=== PATIENT | male | born 1975 | race Caucasian/White ===

== ENCOUNTER 2018-07-10 23:09 | Emergency (ER) | payer MEDICAID ==
[~2018-07-10] VITALS: Ht 188 cm; Wt 144.0 kg
--- NOTE | 2018-07-10 23:48 | NUR ---
Patient is A&O x4, THURSTON and is appropriate. He reports BLE swelling, pain and reddness with a history of DVT in the left leg. I will continue to monitor.
--- NOTE | 2018-07-11 00:28 | NUR ---
Patient to CT w/o problem
--- NOTE | 2018-07-11 01:44 | NUR ---
Patient sleeping on gurney, waiting to be seen by MD.
--- NOTE | 2018-07-11 02:32 | NUR ---
Patient sitting on side of MD nani ordered labs,EKG and radiology. I will continue to monitor.
--- NOTE | 2018-07-11 03:22 | NUR ---
Patient back from xray, resting comfortably on gurney
[2018-07-11 03:40] LABS: BASOPHILS % (AUTO) 0.7 % (0-1); EOSINOPHILS # (AUTO) 0.4 X10'3 (0-0.9); EOSINOPHILS % (AUTO) 5.9 % (0-6); HEMATOCRIT 37.5 % (42.0-52.0); HEMOGLOBIN 12.4 g/dl (14.0-17.9); LYMPHOCYTES # (AUTO) 1.6 X10'3 (1.1-4.8); LYMPHOCYTES % (AUTO) 24.9 % (21-51); MEAN CORPUSCULAR HEMOGLOBIN 29.3 PG (27.0-31.0); MEAN CORPUSCULAR HGB CONC 33.2 % (33.0-36.5); MEAN CORPUSCULAR VOLUME 88.2 FL (78-98); MEAN PLATELET VOLUME 6.6 FL (7.4-10.4); MONOCYTES # (AUTO) 0.9 X10'3 (0-0.9); MONOCYTES % (AUTO) 13.5 % (2-12); NEUTROPHILS # (AUTO) 3.5 X10'3 (1.8-7.7); PLATELET COUNT 271 X10'3 (140-440); RED BLOOD COUNT 4.25 X10'6 (4.70-6.10); RED CELL DISTRIBUTION WIDTH 13.9 % (11.5-14.5); WHITE BLOOD COUNT 6.3 X10'3 (4.5-11.0)
[2018-07-11 03:41] LABS: CLARITY,URINE CLEAR (Clear); COLOR,URINE YELLOW (Yellow); GLUCOSE, URINE NEGATIVE (Neg); KETONES,URINE NEGATIVE (Neg); LEUKOCYTE ESTERASE ,URINE NEGATIVE (Neg); NITRITES, URINE NEGATIVE (Neg); OCCULT BLOOD,URINE NEGATIVE (Neg); PH,URINE 5.5 (4.8-8.0); PROTEIN,URINE NEGATIVE (Neg); UROBILINOGEN,URINE 0.2 E.U/dL (0.2-1.0)
[2018-07-11 03:47] LABS: ALANINE AMINOTRANSFERASE 69 U/L (12-78); ALBUMIN 3.6 G/DL (3.4-5.0); ALBUMIN/GLOBULIN RATIO 0.9 (1.1-1.5); ALKALINE PHOSPHATASE 190 IU/L (46-116); ANION GAP 13 (8-16); ASPARTATE AMINO TRANSFERASE 49 U/L (10-37); BILIRUBIN,TOTAL 0.9 MG/DL (0.1-1.0); BLOOD UREA NITROGEN 20 MG/DL (7-18); BUN/CREATININE RATIO 20.6 (5.4-32.0); CALCIUM 8.9 MG/DL (8.5-10.1); CHLORIDE 104 MMOL/L (99-107); CREATININE 0.97 MG/DL (0.60-1.10); GLUCOSE 75 MG/DL (70-104); POTASSIUM 3.6 MMOL/L (3.5-5.1); SODIUM 141 MMOL/L (135-145); TOTAL CARBON DIOXIDE 24.5 MMOL/L (24-32); TOTAL PROTEIN 7.6 G/DL (6.4-8.2); eGFR 85 ML/MIN
[2018-07-11 03:49] LABS: PARTIAL THROMBOPLASTIN TIME 27 SECONDS (22-32); PROTHROMBIN TIME 9.8 SECONDS (9.0-12.0)
[2018-07-11 03:55] LABS: MAGNESIUM 2.2 MG/DL (1.5-2.4)
[2018-07-11 04:14] VITALS: BP 123/86
[2018-07-11 04:30] LABS: UA COLLECTION TYPE CLN CATCH MIDSTREAM
[2018-07-11] MEDS ORDERED: CEPH250T PO (04:59)
[2018-07-11] MEDS ORDERED: FURO-150 PO (04:59)
[2018-07-11] MEDS ORDERED: furosemide 20MG tablet PO ONE (05:00)
== END 2018-07-11 05:09 | disposition home or self-care (01) ==
LOC: ER 23:10
DX: R60.0 Localized edema (principal); M79.604 Pain in right leg; M79.605 Pain in left leg; F15.10 Other stimulant abuse, uncomplicated; F11.10 Opioid abuse, uncomplicated; Z56.0 Unemployment, unspecified
CPT/HCPCS: 36415; 71045; 80053; 81003; 83735; 83880; 84484; 85025; 85610; 85730; 93005; 99284

== ENCOUNTER 2019-06-26 15:16 | Emergency (ER) | payer MEDICAID ==
[~2019-06-26] VITALS: Ht 190.5 cm; Wt 150.0 kg
[~2019-06-26 15:16] MED LIST: FURO-150 PO; LIDOcaine 1% W/epiNEPHrine 1:100,000 20ml vial ONE
[2019-06-26 15:52] VITALS: BP 144/90
[2019-06-26] MEDS ORDERED: sulfamethoxazole/trimethoprim DS (800/160mg) tablet PO ONE (17:05)
[2019-06-26] MEDS ORDERED: cephalexin 250mg capsule PO ONE (17:05)
[2019-06-26] MEDS ORDERED: SULF1TAB49 PO (17:11)
[2019-06-26] MEDS ORDERED: CEPH500C5 PO (17:11)
== END 2019-06-26 17:18 | disposition home or self-care (01) ==
LOC: ER 15:17
DX: L02.414 Cutaneous abscess of left upper limb (principal); F11.10 Opioid abuse, uncomplicated; M19.90 Unspecified osteoarthritis, unspecified site; F15.90 Other stimulant use, unspecified, uncomplicated; F10.99 Alcohol use, unspecified with unspecified alcohol-induced disorder; Z56.0 Unemployment, unspecified; Z79.899 Other long term (current) drug therapy; Y90.9 Presence of alcohol in blood, level not specified
CPT/HCPCS: 10060; 99283

== ENCOUNTER 2019-07-31 10:48 | Emergency (ER) | payer MEDICAID ==
[~2019-07-31] VITALS: Ht 188 cm; Wt 159.8 kg
[~2019-07-31 10:48] MED LIST changes: -LIDOcaine 1% W/epiNEPHrine 1:100,000 20ml vial ONE
[2019-07-31] MEDS ORDERED: ipratropium/albuterol 3ml nebule NEB ONE (12:35)
[2019-07-31] MEDS ORDERED: benzonatate 100mg capsule PO ONE (12:35)
[2019-07-31] MEDS ORDERED: albuterol 2.5 MG/3 ML nebule NEB ONE (13:35)
[2019-07-31 14:30] LABS: BASOPHILS # (AUTO) 0.1 X10'3 (0-0.2); BASOPHILS % (AUTO) 0.9 % (0-1); EOSINOPHILS # (AUTO) 0.2 X10'3 (0-0.9); EOSINOPHILS % (AUTO) 2.3 % (0-6); HEMATOCRIT 36.8 % (42.0-52.0); HEMOGLOBIN 12.4 g/dl (14.0-17.9); LYMPHOCYTES # (AUTO) 2.2 X10'3 (1.1-4.8); LYMPHOCYTES % (AUTO) 29.8 % (21-51); MEAN CORPUSCULAR HEMOGLOBIN 29.5 PG (27.0-31.0); MEAN CORPUSCULAR HGB CONC 33.8 g/dL (33.0-36.5); MEAN PLATELET VOLUME 6.3 FL (7.4-10.4); MONOCYTES # (AUTO) 1.4 X10'3 (0-0.9); MONOCYTES % (AUTO) 18.5 % (2-12); NEUTROPHILS # (AUTO) 3.6 X10'3 (1.8-7.7); NEUTROPHILS % (AUTO) 48.5 % (42-75); PLATELET COUNT 237 X10'3 (140-440); RED BLOOD COUNT 4.22 X10'6 (4.70-6.10); WHITE BLOOD COUNT 7.4 X10'3 (4.5-11.0)
[2019-07-31 14:54] LABS: PLATELET ESTIMATE NORMAL; TOTAL CELLS COUNTED 100
[2019-07-31 15:11] LABS: ALANINE AMINOTRANSFERASE 129 U/L (12-78); ALBUMIN 3.4 G/DL (3.4-5.0); ALBUMIN/GLOBULIN RATIO 0.8 (1.1-1.5); ALKALINE PHOSPHATASE 154 IU/L (46-116); ANION GAP 11 (8-16); ASPARTATE AMINO TRANSFERASE 70 U/L (10-37); BLOOD UREA NITROGEN 15 MG/DL (7-18); BUN/CREATININE RATIO 14.4 (5.4-32.0); CALCIUM 8.4 MG/DL (8.5-10.1); CHLORIDE 98 MMOL/L (99-107); CREATININE 1.04 MG/DL (0.60-1.10); GLUCOSE 82 MG/DL (70-104); POTASSIUM 3.2 MMOL/L (3.5-5.1); SODIUM 135 MMOL/L (135-145); TOTAL CARBON DIOXIDE 26.4 MMOL/L (24-32); TOTAL PROTEIN 7.9 G/DL (6.4-8.2); eGFR 78 ML/MIN
[2019-07-31 15:18] VITALS: BP 124/93
[2019-07-31] MEDS ORDERED: ALBU18HF2 INH (16:01)
[2019-07-31] MEDS ORDERED: BENZ-16 PO (16:01)
[2019-07-31] MEDS ORDERED: INHA1INH2 INH (16:01)
== END 2019-07-31 16:19 | disposition home or self-care (01) ==
LOC: ER 10:48
DX: R05 Cough (principal); R51 Headache; R07.9 Chest pain, unspecified; I10 Essential (primary) hypertension; M19.90 Unspecified osteoarthritis, unspecified site; Z86.718 Personal history of other venous thrombosis and embolism; F15.90 Other stimulant use, unspecified, uncomplicated; F11.90 Opioid use, unspecified, uncomplicated; Z79.899 Other long term (current) drug therapy; Z56.0 Unemployment, unspecified
CPT/HCPCS: 36415; 71046; 80053; 83880; 84484; 85025; 87502; 87503; 94640; 94760; 99284

== ENCOUNTER 2020-10-17 15:05 | Emergency (ER) | payer MEDICAID ==
[~2020-10-17] VITALS: Ht 188 cm; Wt 182.0 kg
[~2020-10-17 15:05] MED LIST changes: +ALBU18HF2 INH; +INHA1INH2 INH
[2020-10-17 16:19] LABS: BASOPHILS # (AUTO) 0.1 X10'3 (0-0.2); BASOPHILS % (AUTO) 0.6 % (0-1); EOSINOPHILS # (AUTO) 0.2 X10'3 (0-0.9); EOSINOPHILS % (AUTO) 2.3 % (0-6); HEMATOCRIT 35.8 % (42.0-52.0); HEMOGLOBIN 11.8 g/dl (14.0-17.9); LYMPHOCYTES % (AUTO) 10.3 % (21-51); MEAN CORPUSCULAR HEMOGLOBIN 27.4 PG (27.0-31.0); MEAN CORPUSCULAR HGB CONC 33.1 g/dL (33.0-36.5); MEAN CORPUSCULAR VOLUME 82.8 FL (78-98); MEAN PLATELET VOLUME 6.9 FL (7.4-10.4); MONOCYTES # (AUTO) 0.8 X10'3 (0-0.9); MONOCYTES % (AUTO) 8.1 % (2-12); NEUTROPHILS # (AUTO) 7.7 X10'3 (1.8-7.7); NEUTROPHILS % (AUTO) 78.7 % (42-75); PLATELET COUNT 232 X10'3 (140-440); RED BLOOD COUNT 4.32 X10'6 (4.70-6.10); RED CELL DISTRIBUTION WIDTH 15.1 % (11.5-14.5); WHITE BLOOD COUNT 9.7 X10'3 (4.5-11.0)
[2020-10-17 17:00] LABS: D-DIMER 2.24 MG/L FEU (0-0.50)
--- NOTE | 2020-10-17 18:54 | NUR ---
Confirmed w/Dr. Castro: no chem panel, troponins or EKG. US tech at bedside.
[2020-10-17 20:43] VITALS: BP 122/71
[2020-10-17] MEDS ORDERED: ondansetron 4mg rapidly disintigrating tab PO ONE (20:50)
[2020-10-17] MEDS ORDERED: HYDROcodone/acetaminophen 5mg/325mg tablet PO ONE (20:50)
[2020-10-17] MEDS ORDERED: ONDA4TAB6 PO (20:59)
[2020-10-17] MEDS ORDERED: HYDR-3964 PO (20:59)
== END 2020-10-17 21:27 | disposition home or self-care (01) ==
LOC: ER 15:06
DX: M79.605 Pain in left leg (principal); I87.2 Venous insufficiency (chronic) (peripheral); I47.1 Supraventricular tachycardia; I10 Essential (primary) hypertension; M19.90 Unspecified osteoarthritis, unspecified site; F15.90 Other stimulant use, unspecified, uncomplicated; Z79.01 Long term (current) use of anticoagulants; Z86.718 Personal history of other venous thrombosis and embolism; Z72.89 Other problems related to lifestyle; Z56.0 Unemployment, unspecified; Z79.899 Other long term (current) drug therapy
CPT/HCPCS: 36415; 71045; 85025; 85379; 93005; 93971; 99285

== ENCOUNTER 2020-10-21 12:36 | Emergency (ER) | payer MEDICAID ==
[~2020-10-21] VITALS: Ht 188 cm; Wt 172.7 kg
[~2020-10-21 12:36] MED LIST changes: +HYDR-3964 PO; +ONDA4TAB6 PO
[2020-10-21] MEDS ORDERED: CefTRIAXone 2gm/D5W 50ml BAG 50 ML IV ONE (13:40)
[2020-10-21] MEDS ORDERED: DOXY100C77 PO (14:30)
[2020-10-21] MEDS ORDERED: CEPH-585 PO (14:30)
[2020-10-21 14:38] LABS: BASOPHILS % (AUTO) 0.6 % (0-1); EOSINOPHILS # (AUTO) 0.2 X10'3 (0-0.9); EOSINOPHILS % (AUTO) 2.5 % (0-6); HEMOGLOBIN 11.5 g/dl (14.0-17.9); LYMPHOCYTES # (AUTO) 1.1 X10'3 (1.1-4.8); LYMPHOCYTES % (AUTO) 16.1 % (21-51); MEAN CORPUSCULAR HEMOGLOBIN 27.7 PG (27.0-31.0); MEAN CORPUSCULAR HGB CONC 32.7 g/dL (33.0-36.5); MEAN CORPUSCULAR VOLUME 84.5 FL (78-98); MEAN PLATELET VOLUME 6.4 FL (7.4-10.4); MONOCYTES # (AUTO) 0.9 X10'3 (0-0.9); MONOCYTES % (AUTO) 14.1 % (2-12); NEUTROPHILS # (AUTO) 4.4 X10'3 (1.8-7.7); NEUTROPHILS % (AUTO) 66.7 % (42-75); PLATELET COUNT 276 X10'3 (140-440); RED BLOOD COUNT 4.14 X10'6 (4.70-6.10); RED CELL DISTRIBUTION WIDTH 15.4 % (11.5-14.5); WHITE BLOOD COUNT 6.7 X10'3 (4.5-11.0)
[2020-10-21 14:51] LABS: ALANINE AMINOTRANSFERASE 98 U/L (12-78); ALBUMIN 2.8 G/DL (3.4-5.0); ALBUMIN/GLOBULIN RATIO 0.6 (1.1-1.5); ALKALINE PHOSPHATASE 164 IU/L (46-116); ANION GAP 8 (8-16); ASPARTATE AMINO TRANSFERASE 62 U/L (10-37); BILIRUBIN,TOTAL 0.9 MG/DL (0.1-1.0); BLOOD UREA NITROGEN 19 MG/DL (7-18); BUN/CREATININE RATIO 18.4 (5.4-32.0); CALCIUM 8.5 MG/DL (8.5-10.1); CHLORIDE 98 MMOL/L (99-107); CREATININE 1.03 MG/DL (0.60-1.10); GLUCOSE 125 MG/DL (70-104); POTASSIUM 3.4 MMOL/L (3.5-5.1); SODIUM 137 MMOL/L (135-145); TOTAL CARBON DIOXIDE 31.2 MMOL/L (24-32); TOTAL PROTEIN 7.6 G/DL (6.4-8.2); eGFR 79 ML/MIN
--- NOTE | 2020-10-21 15:48 | NUR ---
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
[2020-10-21] MEDS ORDERED: CefTRIAXone 1000mg IM Kit (w/lidocaine diluent) IM ONE (15:50)
[2020-10-21 15:58] VITALS: BP 147/84
== END 2020-10-21 16:12 | disposition home or self-care (01) ==
LOC: ER 12:37
DX: L03.116 Cellulitis of left lower limb (principal); I10 Essential (primary) hypertension; M19.90 Unspecified osteoarthritis, unspecified site; F15.90 Other stimulant use, unspecified, uncomplicated; F11.90 Opioid use, unspecified, uncomplicated; Z86.718 Personal history of other venous thrombosis and embolism; Z72.89 Other problems related to lifestyle; Z56.0 Unemployment, unspecified; Z79.2 Long term (current) use of antibiotics; Z79.899 Other long term (current) drug therapy
CPT/HCPCS: 36415; 80053; 83605; 84145; 85025; 96372; 99283; J0696

== ENCOUNTER 2021-02-18 08:09 | Emergency (ER) | payer MEDICAID ==
[~2021-02-18] VITALS: Ht 188 cm; Wt 181.8 kg
[~2021-02-18 08:09] MED LIST changes: +CEPH-585 PO; -HYDR-3964 PO
[2021-02-18 16:43] LABS: BASOPHILS # (AUTO) 0.1 X10'3 (0-0.2); BASOPHILS % (AUTO) 0.9 % (0-1); EOSINOPHILS # (AUTO) 0.3 X10'3 (0-0.9); EOSINOPHILS % (AUTO) 4.6 % (0-6); HEMATOCRIT 38.3 % (42.0-52.0); HEMOGLOBIN 12.7 g/dl (14.0-17.9); LYMPHOCYTES # (AUTO) 1.7 X10'3 (1.1-4.8); LYMPHOCYTES % (AUTO) 22.4 % (21-51); MEAN CORPUSCULAR HEMOGLOBIN 28.8 PG (27.0-31.0); MEAN CORPUSCULAR HGB CONC 33.1 g/dL (33.0-36.5); MEAN CORPUSCULAR VOLUME 86.9 FL (78-98); MEAN PLATELET VOLUME 6.4 FL (7.4-10.4); MONOCYTES # (AUTO) 0.8 X10'3 (0-0.9); MONOCYTES % (AUTO) 10.9 % (2-12); NEUTROPHILS # (AUTO) 4.6 X10'3 (1.8-7.7); NEUTROPHILS % (AUTO) 61.2 % (42-75); PLATELET COUNT 283 X10'3 (140-440); RED BLOOD COUNT 4.41 X10'6 (4.70-6.10); RED CELL DISTRIBUTION WIDTH 15.8 % (11.5-14.5); WHITE BLOOD COUNT 7.4 X10'3 (4.5-11.0)
[2021-02-18 16:57] LABS: ALANINE AMINOTRANSFERASE 166 U/L (12-78); ALBUMIN 3.3 G/DL (3.4-5.0); ALBUMIN/GLOBULIN RATIO 0.6 (1.1-1.5); ALKALINE PHOSPHATASE 172 IU/L (46-116); ANION GAP 9 (8-16); ASPARTATE AMINO TRANSFERASE 77 U/L (10-37); BLOOD UREA NITROGEN 14 MG/DL (7-18); BUN/CREATININE RATIO 12.7 (5.4-32.0); CALCIUM 8.6 MG/DL (8.5-10.1); CHLORIDE 97 MMOL/L (99-107); GLUCOSE 81 MG/DL (70-104); SODIUM 136 MMOL/L (135-145); TOTAL CARBON DIOXIDE 30.1 MMOL/L (24-32); TOTAL PROTEIN 8.9 G/DL (6.4-8.2); eGFR 73 ML/MIN
[2021-02-18] MEDS ORDERED: CefTRIAXone 1000mg IM Kit (w/lidocaine diluent) IM ONE (17:20)
[2021-02-18] MEDS ORDERED: CEPH500C2 PO (17:22)
[2021-02-18] MEDS ORDERED: SULF1TAB49 PO (17:22)
[2021-02-18 17:50] VITALS: BP 123/80
== END 2021-02-18 17:56 | disposition home or self-care (01) ==
LOC: ER 08:09
DX: L03.116 Cellulitis of left lower limb (principal); I10 Essential (primary) hypertension; Z56.0 Unemployment, unspecified
CPT/HCPCS: 36415; 80053; 83605; 84145; 85025; 87040; 99283; J0696

== ENCOUNTER 2021-05-04 03:58 | Emergency (ER) | payer MEDICAID ==
[~2021-05-04] VITALS: Ht 188 cm; Wt 181.0 kg
[2021-05-04 04:29] VITALS: BP 142/87
[2021-05-04] MEDS ORDERED: SULF1TAB49 PO (04:49)
--- NOTE | 2021-05-04 04:53 | NUR ---
PT SEEN AND DC'D BY PROVIDER PRIOR TO ROCKET MOTOR TESTER.
== END 2021-05-04 04:58 | disposition home or self-care (01) ==
LOC: ER 03:59
DX: L03.115 Cellulitis of right lower limb (principal); L03.116 Cellulitis of left lower limb; I10 Essential (primary) hypertension; M19.90 Unspecified osteoarthritis, unspecified site; F15.90 Other stimulant use, unspecified, uncomplicated; F11.90 Opioid use, unspecified, uncomplicated; Z86.718 Personal history of other venous thrombosis and embolism; Z72.89 Other problems related to lifestyle; Z56.0 Unemployment, unspecified; Z79.2 Long term (current) use of antibiotics; Z79.899 Other long term (current) drug therapy
CPT/HCPCS: 99283

== ENCOUNTER 2021-07-10 16:33 | Inpatient (IN) | payer MEDICAID ==
[~2021-07-10] VITALS: Ht 188 cm; Wt 190.0 kg
[2021-07-10] MEDS ORDERED: acetaminophen 325mg tablet PO ONE (16:50)
[2021-07-10 18:02] LABS: BASOPHILS % (AUTO) 0.3 % (0-1); EOSINOPHILS % (AUTO) 0.1 % (0-6); HEMATOCRIT 39.1 % (42.0-52.0); LYMPHOCYTES # (AUTO) 0.5 X10'3 (1.1-4.8); LYMPHOCYTES % (AUTO) 2.8 % (21-51); MEAN CORPUSCULAR HGB CONC 33.1 g/dL (33.0-36.5); MEAN CORPUSCULAR VOLUME 84.6 FL (78-98); MEAN PLATELET VOLUME 6.4 FL (7.4-10.4); MONOCYTES # (AUTO) 0.7 X10'3 (0-0.9); MONOCYTES % (AUTO) 4.2 % (2-12); NEUTROPHILS % (AUTO) 92.6 % (42-75); PLATELET COUNT 306 X10'3 (140-440); RED BLOOD COUNT 4.62 X10'6 (4.70-6.10); RED CELL DISTRIBUTION WIDTH 14.8 % (11.5-14.5); WHITE BLOOD COUNT 16.2 X10'3 (4.5-11.0)
[2021-07-10 18:09] LABS: D-DIMER 1.55 MG/L FEU (0-0.50)
[2021-07-10 18:16] LABS: ALANINE AMINOTRANSFERASE 153 U/L (12-78); ALBUMIN 3.5 G/DL (3.4-5.0); ALBUMIN/GLOBULIN RATIO 0.7 (1.1-1.5); ALKALINE PHOSPHATASE 163 IU/L (46-116); ANION GAP 9 (8-16); ASPARTATE AMINO TRANSFERASE 68 U/L (10-37); BILIRUBIN,TOTAL 1.3 MG/DL (0.1-1.0); BLOOD UREA NITROGEN 18 MG/DL (7-18); BUN/CREATININE RATIO 16.2 (5.4-32.0); CALCIUM 9.5 MG/DL (8.5-10.1); CHLORIDE 99 MMOL/L (99-107); CREATININE 1.11 MG/DL (0.60-1.10); GLUCOSE 105 MG/DL (70-104); POTASSIUM 3.7 MMOL/L (3.5-5.1); SODIUM 136 MMOL/L (135-145); TOTAL PROTEIN 8.4 G/DL (6.4-8.2); eGFR 72 ML/MIN
[2021-07-10 18:24] LABS: TOTAL CELLS COUNTED 100
[2021-07-10 18:25] LABS: PLATELET ESTIMATE NORMAL
[2021-07-10] MEDS ORDERED: normal saline 1000ML IV soln IV ONE ×2 (18:25→18:35)
[2021-07-10] MEDS ORDERED: vancomycin/NS 1 GM ADD-VANTAGE 250 ML IV ONE (18:25)
[2021-07-10] MEDS ORDERED: iohexol 350MG/ML 100ml bottle IV ONE ×2 (18:44→19:17)
--- NOTE | 2021-07-10 19:10 | NUR ---
PT TO CT WITH TECH
[2021-07-10] MEDS ORDERED: APIX5TAB3 PO ×2 (21:47→21:51)
[2021-07-10] MEDS ORDERED: CHLO50TA PO ×2 (21:47→21:51)
[2021-07-10] MEDS ORDERED: LISI40TA13 PO (21:47)
[2021-07-10] MEDS ORDERED: LISI10TA27 PO (21:51)
[2021-07-10] MEDS ORDERED: magnesium hydroxide 30ml (MOM) UD suspension PO PRN (22:00)
[2021-07-10] MEDS ORDERED: mag hydrox/Alum hydrox/simeth 30ml oral suspension PO PRN (22:00)
[2021-07-10] MEDS ORDERED: ondansetron/PF 4mg/2ml inj IV PRN (22:00)
[2021-07-10] MEDS ORDERED: magnesium 2GM in 50ml NS 50 ML IV PRN (22:00)
[2021-07-10] MEDS ORDERED: magnesium Cl slow-release 64mg tablet PO PRN (22:00)
[2021-07-10] MEDS ORDERED: acetaminophen 325mg tablet PO PRN (22:00)
[2021-07-10] MEDS ORDERED: potassium CL 10mEq/100ml bag 100 ML IV PRN (22:00)
[2021-07-10] MEDS ORDERED: magnesium 4gm in 100ml NS 100 ML IV PRN (22:00)
[2021-07-10 22:02] LABS: URINE AMPHETAMINE SCREEN POSITIVE (Neg); URINE BARBITUATE SCREEN NEGATIVE (Neg); URINE BENZODIAZEPINES SCREEN NEGATIVE (Neg); URINE CANNABINOID SCREEN NEGATIVE (Neg); URINE COCAINE SCREEN NEGATIVE (Neg); URINE METHADONE SCREEN POSITIVE (Neg); URINE OPIATE SCREEN NEGATIVE (Neg); URINE PHENCYCLIDINE SCREEN NEGATIVE (Neg)
[2021-07-10 22:15] LABS: MAGNESIUM 1.8 MG/DL (1.5-2.4)
--- NOTE | 2021-07-10 22:16 | NUR ---
VAS AT BEDSIDE
[2021-07-11] MEDS: vancomycin/NS 1 GM ADD-VANTAGE 250 ML IV SCH ×3 (00:20→16:00)
--- NOTE | 2021-07-11 00:33 | NUR ---
Patient able to move himself to hospital bed w/o problem.
--- NOTE | 2021-07-11 06:30 | NUR ---
assumed care of pt, resting in bed supine. no distress noted, no needs at this time.
--- NOTE | 2021-07-11 07:29 | NUR ---
pt ambulated to/from restroom without incident.
[2021-07-11] MEDS: methadone 10mg tablet PO SCH (07:53)
[2021-07-11] MEDS: lisinopril 20mg tablet PO SCH (07:54)
[2021-07-11] MEDS: docusate sod 100mg capsule PO SCH ×2 (07:54→20:00)
[2021-07-11] MEDS: K and/or MAG REPLACEMENT MC SCH ×2 (08:00→20:00)
--- NOTE | 2021-07-11 08:08 | NUR ---
meal tray provided
--- NOTE | 2021-07-11 08:08 | NUR ---
pt sitting at edge of bed for breakfast, increased wob with exertion 02 remains 98%.
[2021-07-11 08:09] LABS: BASOPHILS # (AUTO) 0.1 X10'3 (0-0.2); BASOPHILS % (AUTO) 0.4 % (0-1); EOSINOPHILS % (AUTO) 0 % (0-6); HEMATOCRIT 35.1 % (42.0-52.0); HEMOGLOBIN 11.6 g/dl (14.0-17.9); LYMPHOCYTES # (AUTO) 0.8 X10'3 (1.1-4.8); LYMPHOCYTES % (AUTO) 5.4 % (21-51); MEAN CORPUSCULAR HEMOGLOBIN 28.3 PG (27.0-31.0); MEAN CORPUSCULAR HGB CONC 32.9 g/dL (33.0-36.5); MEAN CORPUSCULAR VOLUME 85.9 FL (78-98); MEAN PLATELET VOLUME 6.4 FL (7.4-10.4); MONOCYTES % (AUTO) 6.4 % (2-12); NEUTROPHILS # (AUTO) 13.3 X10'3 (1.8-7.7); NEUTROPHILS % (AUTO) 87.8 % (42-75); PLATELET COUNT 238 X10'3 (140-440); RED BLOOD COUNT 4.08 X10'6 (4.70-6.10); RED CELL DISTRIBUTION WIDTH 15.1 % (11.5-14.5); WHITE BLOOD COUNT 15.1 X10'3 (4.5-11.0)
[2021-07-11] MEDS: chlorthalidone 25mg tablet PO SCH (08:57)
[2021-07-11] MEDS: apixaban 5mg tablet PO SCH ×2 (08:58→20:24)
[2021-07-11 10:07] LABS: ALANINE AMINOTRANSFERASE 107 U/L (12-78); ALBUMIN 2.7 G/DL (3.4-5.0); ALBUMIN/GLOBULIN RATIO 0.6 (1.1-1.5); ALKALINE PHOSPHATASE 112 IU/L (46-116); ANION GAP 12 (8-16); ASPARTATE AMINO TRANSFERASE 56 U/L (10-37); BILIRUBIN,TOTAL 1.6 MG/DL (0.1-1.0); BLOOD UREA NITROGEN 17 MG/DL (7-18); BUN/CREATININE RATIO 16.8 (5.4-32.0); CALCIUM 8.1 MG/DL (8.5-10.1); CHLORIDE 94 MMOL/L (99-107); CREATININE 1.01 MG/DL (0.60-1.10); GLUCOSE 134 MG/DL (70-104); MAGNESIUM 1.7 MG/DL (1.5-2.4); POTASSIUM 3.1 MMOL/L (3.5-5.1); SODIUM 133 MMOL/L (135-145); TOTAL CARBON DIOXIDE 26.9 MMOL/L (24-32); TOTAL PROTEIN 6.9 G/DL (6.4-8.2); eGFR 80 ML/MIN
--- NOTE | 2021-07-11 10:30 | NUR ---
dr. morejon paged regarding lasix gtt.
--- NOTE | 2021-07-11 10:57 | NUR ---
dr. morejon paged regarding lasix drip. pt is making approx 160ml urine per hour. per md, continue with lasix drip. aware of morning labs.
[2021-07-11] MEDS: furosemide inj 100 MG in normal saline 100ml IV soln 90 ML IV SCH (11:04)
--- NOTE | 2021-07-11 11:05 | NUR ---
rt paged for abg
--- NOTE | 2021-07-11 11:15 | NUR ---
rt at bedside for abg
[2021-07-11] MEDS: potassium Cl 20 mEq SR tablet PO PRN ×2 (11:18→20:24)
--- NOTE | 2021-07-11 11:31 | NUR ---
pt ambulated with steady gait to/from restroom without incident.
[2021-07-11 11:32] LABS: ABG BASE EXCESS 4.2 mmol/L (-2.0-2.0); ABG HCO3 29.1 mmol/L (22.0-26.0); ABG OXYGEN SATURATION 94.6 % (94-97); ABG PCO2 (T) 44.8 mmHg (35.0-48.0); ABG PO2 (T) 71.1 mmHg (75.0-100.0); ALLEN'S TEST POSITIVE; FCOHb 0.6 % (0.0-3.9); FMetHb 0.1 % (0.0-1.5); FO2Hb 93.9 % (94-97); TOTAL HEMOGLOBIN 12.4 G/dl (14.0-18.0)
[2021-07-11] MEDS ORDERED: ondansetron 4mg rapidly disintigrating tab PO PRN (13:50)
[2021-07-11] MEDS ORDERED: VANCOMYCIN LEVEL IV ONE (15:30)
--- NOTE | 2021-07-11 16:01 | NUR ---
requested repeat k for pt, per dr morejon wait until tomorrow for lab draw.
[2021-07-11] MEDS: lactobacillus rhamnosus 10,000 MMU CELLS/CAPSULE PO SCH (20:24)
[2021-07-12 01:14] LABS: BASOPHILS # (AUTO) 0.1 X10'3 (0-0.2); BASOPHILS % (AUTO) 0.5 % (0-1); EOSINOPHILS # (AUTO) 0.1 X10'3 (0-0.9); EOSINOPHILS % (AUTO) 0.7 % (0-6); HEMATOCRIT 36.3 % (42.0-52.0); HEMOGLOBIN 12.3 g/dl (14.0-17.9); LYMPHOCYTES # (AUTO) 1.2 X10'3 (1.1-4.8); LYMPHOCYTES % (AUTO) 11.9 % (21-51); MEAN CORPUSCULAR HEMOGLOBIN 28.8 PG (27.0-31.0); MEAN CORPUSCULAR VOLUME 84.6 FL (78-98); MEAN PLATELET VOLUME 6.4 FL (7.4-10.4); MONOCYTES % (AUTO) 9.2 % (2-12); NEUTROPHILS # (AUTO) 8.1 X10'3 (1.8-7.7); NEUTROPHILS % (AUTO) 77.7 % (42-75); PLATELET COUNT 288 X10'3 (140-440); RED BLOOD COUNT 4.29 X10'6 (4.70-6.10); RED CELL DISTRIBUTION WIDTH 15.1 % (11.5-14.5); WHITE BLOOD COUNT 10.4 X10'3 (4.5-11.0)
[2021-07-12] MEDS: potassium Cl 20 mEq SR tablet PO PRN ×3 (01:19→10:09)
[2021-07-12 01:32] LABS: ALANINE AMINOTRANSFERASE 116 U/L (12-78); ALBUMIN 3.1 G/DL (3.4-5.0); ALBUMIN/GLOBULIN RATIO 0.5 (1.1-1.5); ALKALINE PHOSPHATASE 142 IU/L (46-116); ANION GAP 11 (8-16); ASPARTATE AMINO TRANSFERASE 66 U/L (10-37); BILIRUBIN,TOTAL 1.1 MG/DL (0.1-1.0); BLOOD UREA NITROGEN 19 MG/DL (7-18); BUN/CREATININE RATIO 16.4 (5.4-32.0); CALCIUM 8.8 MG/DL (8.5-10.1); CHLORIDE 95 MMOL/L (99-107); CREATININE 1.16 MG/DL (0.60-1.10); GLUCOSE 107 MG/DL (70-104); MAGNESIUM 1.9 MG/DL (1.5-2.4); SODIUM 134 MMOL/L (135-145); TOTAL CARBON DIOXIDE 27.7 MMOL/L (24-32); eGFR 68 ML/MIN
[2021-07-12] MEDS: furosemide inj 100 MG in normal saline 100ml IV soln 90 ML IV SCH ×3 (01:38→09:40)
[2021-07-12] MEDS: vancomycin/NS 1 GM ADD-VANTAGE 250 ML IV SCH ×2 (02:43→09:38)
[2021-07-12] MEDS: K and/or MAG REPLACEMENT MC SCH (08:00)
[2021-07-12] MEDS: lactobacillus rhamnosus 10,000 MMU CELLS/CAPSULE PO SCH (08:22)
[2021-07-12] MEDS: lisinopril 20mg tablet PO SCH (08:23)
[2021-07-12] MEDS: apixaban 5mg tablet PO SCH (08:24)
[2021-07-12] MEDS: docusate sod 100mg capsule PO SCH (08:24)
[2021-07-12] MEDS: chlorthalidone 25mg tablet PO SCH (08:24)
[2021-07-12] MEDS: methadone 10mg tablet PO SCH (08:30)
[2021-07-12 08:38] VITALS: BP 140/78
[2021-07-12 11:00] VITALS: BP 142/76
--- NOTE | 2021-07-12 12:57 | NUR ---
PAGED DR. WALKER REGARDING PATIENT LEAVING AMA. PAGER ID: [phone] MESSAGE: [phone]. SARAH YIP. PATIENT WANTING TO LEAVE AMA. THANK YOU.
--- NOTE | 2021-07-12 13:02 | NUR ---
[place] [id number] SIGNED FORM AMA. VOLUNTARY LEAVING THE HOSPITAL WITHOUT BEING SEEN BY A PHYSICIAN. STATED HE JUST WANT TO GO HOME ,PATIENT MOM WAS PRESENT PRIOR TO DEPARTURE, ALL PORTABLE MONITOR AND IV LASIX DRIP REMOVED.PATIENT VOIDED,VITALS B/P 134/68 [id number].R 18. T 98.3. ALERT X4 . AMBULATING, DENIES ANY DISTRESS. ASSISTED TO MAIN LOBBY WITH MOM FOR THE DEPARTING THE HOSPITAL.
[2021-07-12 13:11] VITALS: BP 134/68
--- NOTE | 2021-07-12 13:13 | NUR ---
IN CONTINUATION WITH THE PATIENT SIGNED AMA. CHARGE NURSE AND DR. WALKER WAS NOTIFIED.
== END 2021-07-12 12:55 | disposition left against medical advice (07) | DRG 720 ==
LOC: ER 16:35 → ED HOLD 22:00 → PCU 3S 07-12 07:50
PROVIDERS: ADMIT Internal Medicine; ATTEND Internal Medicine
PROC: B32T1ZZ Computerized Tomography (CT Scan) of Left Pulmonary Artery using Low Osmolar Contrast (ICD-10-PCS; principal; 2021-07-10)
PROC: B3201ZZ Computerized Tomography (CT Scan) of Thoracic Aorta using Low Osmolar Contrast (ICD-10-PCS; 2021-07-10)
PROC: B32S1ZZ Computerized Tomography (CT Scan) of Right Pulmonary Artery using Low Osmolar Contrast (ICD-10-PCS; 2021-07-10)
DX: A41.9 Sepsis, unspecified organism (principal); I27.81 Cor pulmonale (chronic); I82.532 Chronic embolism and thrombosis of left popliteal vein; Z68.43 Body mass index [BMI] 50.0-59.9, adult; L03.116 Cellulitis of left lower limb; I10 Essential (primary) hypertension; I87.8 Other specified disorders of veins; E66.01 Morbid (severe) obesity due to excess calories; Z20.822 Contact with and (suspected) exposure to COVID-19; Z53.29 Procedure and treatment not carried out because of patient's decision for other reasons; F11.90 Opioid use, unspecified, uncomplicated; R74.01 Elevation of levels of liver transaminase levels; F15.90 Other stimulant use, unspecified, uncomplicated; M19.90 Unspecified osteoarthritis, unspecified site; Z56.0 Unemployment, unspecified; Z79.01 Long term (current) use of anticoagulants; Z79.899 Other long term (current) drug therapy
CPT/HCPCS: 36415; 36600; 71045; 71275; 80053; 80202; 80305; 82803; 83605; 83735; 83880; 84145; 84484; 85007; 85018; 85025; 85379; 87040; 87081; 87635; 93005; 93306; 93971; 96365; 96366; 99285; C9803; G0378; J1940; J3370; J3490; J7030; Q9967

== ENCOUNTER 2021-10-01 17:03 | Emergency (ER) | payer MEDICAID ==
[~2021-10-01] VITALS: Ht 188 cm; Wt 187.8 kg
[~2021-10-01 17:03] MED LIST changes: -ALBU18HF2 INH; +APIX5TAB3 PO; -CEPH-585 PO; +CHLO50TA PO; -FURO-150 PO; -INHA1INH2 INH; +LISI10TA27 PO; -ONDA4TAB6 PO
[2021-10-01] MEDS ORDERED: HYDROchlorothiazide 25mg tablet PO ONE (17:55)
[2021-10-01] MEDS ORDERED: cefTRIAXone 1g/NS 100ml IVPB 100 ML IV ONE (17:55)
[2021-10-01] MEDS ORDERED: lisinopril 10 MG tablet PO ONE (17:55)
[2021-10-01 18:13] LABS: BASOPHILS % (AUTO) 0.6 % (0-1); EOSINOPHILS # (AUTO) 0.2 X10'3 (0-0.9); EOSINOPHILS % (AUTO) 2.5 % (0-6); HEMATOCRIT 36.8 % (42.0-52.0); HEMOGLOBIN 11.9 g/dl (14.0-17.9); LYMPHOCYTES # (AUTO) 1.5 X10'3 (1.1-4.8); LYMPHOCYTES % (AUTO) 20.4 % (21-51); MEAN CORPUSCULAR HEMOGLOBIN 26.1 PG (27.0-31.0); MEAN CORPUSCULAR HGB CONC 32.4 g/dL (33.0-36.5); MEAN CORPUSCULAR VOLUME 80.7 FL (78-98); MEAN PLATELET VOLUME 6.2 FL (7.4-10.4); MONOCYTES % (AUTO) 13.8 % (2-12); NEUTROPHILS # (AUTO) 4.7 X10'3 (1.8-7.7); NEUTROPHILS % (AUTO) 62.7 % (42-75); PLATELET COUNT 310 X10'3 (140-440); RED BLOOD COUNT 4.56 X10'6 (4.70-6.10); WHITE BLOOD COUNT 7.5 X10'3 (4.5-11.0)
[2021-10-01 18:20] LABS: ALANINE AMINOTRANSFERASE 97 U/L (12-78); ALBUMIN 3.1 G/DL (3.4-5.0); ALBUMIN/GLOBULIN RATIO 0.7 (1.1-1.5); ALKALINE PHOSPHATASE 208 IU/L (46-116); ANION GAP 10 (8-16); ASPARTATE AMINO TRANSFERASE 50 U/L (10-37); BILIRUBIN,TOTAL 0.8 MG/DL (0.1-1.0); BLOOD UREA NITROGEN 16 MG/DL (7-18); BUN/CREATININE RATIO 20.8 (5.4-32.0); CALCIUM 9.1 MG/DL (8.5-10.1); CHLORIDE 99 MMOL/L (99-107); CREATININE 0.77 MG/DL (0.60-1.10); GLUCOSE 112 MG/DL (70-104); POTASSIUM 3.3 MMOL/L (3.5-5.1); SODIUM 140 MMOL/L (135-145); TOTAL CARBON DIOXIDE 30.8 MMOL/L (24-32); TOTAL PROTEIN 7.8 G/DL (6.4-8.2); eGFR > 90 ML/MIN
[2021-10-01 18:39] VITALS: BP 225/131
[2021-10-01] MEDS ORDERED: CEPH-585 PO (18:44)
[2021-10-01] MEDS ORDERED: HYDR12.55 PO (18:44)
[2021-10-01] MEDS ORDERED: LISI40TA13 PO (18:44)
== END 2021-10-01 19:25 | disposition home or self-care (01) ==
LOC: ER 17:04
DX: L03.116 Cellulitis of left lower limb (principal); I10 Essential (primary) hypertension; F15.10 Other stimulant abuse, uncomplicated; R06.02 Shortness of breath; R07.89 Other chest pain; M19.90 Unspecified osteoarthritis, unspecified site; F11.90 Opioid use, unspecified, uncomplicated; Z86.718 Personal history of other venous thrombosis and embolism; Z72.89 Other problems related to lifestyle; Z56.0 Unemployment, unspecified; Z79.899 Other long term (current) drug therapy
CPT/HCPCS: 36415; 80053; 85025; 96365; 99285; J0696

== ENCOUNTER 2021-10-25 10:04 | Emergency (ER) | payer MEDICAID ==
[~2021-10-25] VITALS: Ht 188 cm; Wt 180.0 kg
[~2021-10-25 10:04] MED LIST changes: +CEPH-585 PO; +HYDR12.55 PO; +LISI40TA13 PO
[2021-10-25 10:30] VITALS: BP 202/95
[2021-10-25] MEDS ORDERED: CEPH-585 PO (13:30)
== END 2021-10-25 14:03 | disposition home or self-care (01) ==
LOC: ER 10:05
DX: L03.116 Cellulitis of left lower limb (principal); I10 Essential (primary) hypertension; M19.90 Unspecified osteoarthritis, unspecified site; F15.90 Other stimulant use, unspecified, uncomplicated; F11.90 Opioid use, unspecified, uncomplicated; Z79.01 Long term (current) use of anticoagulants; Z86.19 Personal history of other infectious and parasitic diseases; Z86.718 Personal history of other venous thrombosis and embolism; Z72.89 Other problems related to lifestyle; Z56.0 Unemployment, unspecified; Z79.899 Other long term (current) drug therapy
CPT/HCPCS: 99283

== ENCOUNTER 2021-11-18 05:47 | Emergency (ER) | payer MEDICAID ==
[~2021-11-18] VITALS: Ht 188 cm; Wt 181.8 kg
[~2021-11-18 05:47] MED LIST changes: -LISI40TA13 PO
[2021-11-18 05:52] VITALS: BP 170/142
--- NOTE | 2021-11-18 06:39 | NUR ---
PT SEEN IN [facility] BY DR. HANSON.
[2021-11-18] MEDS ORDERED: DOXYCYCLINE 100MG CAPSULE PO STA (06:40)
--- NOTE | 2021-11-18 06:56 | NUR ---
PT PLACED IN ER BED 18 FOR US
[2021-11-18] MEDS ORDERED: DOXY-411 PO (07:47)
== END 2021-11-18 08:25 | disposition home or self-care (01) ==
LOC: ER 05:47
DX: L03.116 Cellulitis of left lower limb (principal); I89.0 Lymphedema, not elsewhere classified; I87.8 Other specified disorders of veins; I10 Essential (primary) hypertension; M19.90 Unspecified osteoarthritis, unspecified site; F15.90 Other stimulant use, unspecified, uncomplicated; F11.90 Opioid use, unspecified, uncomplicated; Z56.0 Unemployment, unspecified; Z72.89 Other problems related to lifestyle; Z86.718 Personal history of other venous thrombosis and embolism; Z79.2 Long term (current) use of antibiotics; Z79.899 Other long term (current) drug therapy
CPT/HCPCS: 93971; 99284

== ENCOUNTER 2021-12-17 19:52 | Emergency (ER) | payer MEDICAID ==
[~2021-12-17] VITALS: Ht 188 cm; Wt 181.8 kg
[2021-12-17] MEDS ORDERED: DOXYCYCLINE 100MG CAPSULE PO STA (20:44)
[2021-12-17] MEDS ORDERED: DOXY100C76 PO (20:47)
[2021-12-17] MEDS ORDERED: CEPH250T PO (20:47)
[2021-12-17 21:02] VITALS: BP 139/95
== END 2021-12-17 21:04 | disposition home or self-care (01) ==
LOC: ER 19:54
DX: L03.116 Cellulitis of left lower limb (principal); I10 Essential (primary) hypertension; M19.90 Unspecified osteoarthritis, unspecified site; F15.90 Other stimulant use, unspecified, uncomplicated; F11.90 Opioid use, unspecified, uncomplicated; Z72.89 Other problems related to lifestyle; Z56.0 Unemployment, unspecified; Z86.718 Personal history of other venous thrombosis and embolism; Z79.01 Long term (current) use of anticoagulants; Z79.899 Other long term (current) drug therapy
CPT/HCPCS: 99283

== ENCOUNTER 2022-04-24 17:39 | Inpatient (IN) | payer MEDICAID ==
[~2022-04-24] VITALS: Ht 188 cm; Wt 181.8 kg
[2022-04-24] MEDS ORDERED: temazepam 15mg capsule PO PRN (21:00)
[2022-04-24] MEDS ORDERED: CefTRIAXone 2gm/D5W 50ml BAG 50 ML IV ONE (21:35)
[2022-04-24] MEDS ORDERED: HYDROcodone/acetaminophen 10/325mg tab PO PRN (22:45)
[2022-04-24] MEDS ORDERED: mag hydrox/Alum hydrox/simeth 30ml oral suspension PO PRN (22:45)
[2022-04-24] MEDS ORDERED: diphenhydrAMINE 50 mg/ml inj IV PRN (22:45)
[2022-04-24] MEDS ORDERED: diphenhydrAMINE 25mg capsule PO PRN (22:45)
[2022-04-24] MEDS ORDERED: VANCOmycin 2,000MG in NS 500ml IV soln IV ONE (22:45)
[2022-04-24] MEDS ORDERED: ondansetron/PF 4mg/2ml inj IV PRN (22:45)
[2022-04-24] MEDS ORDERED: acetaminophen 325mg tablet PO PRN ×2 (22:45)
[2022-04-24] MEDS ORDERED: morphine 2 MG/ML inj. syringe IV PRN ×2 (22:45)
[2022-04-24] MEDS ORDERED: ondansetron 4mg rapidly disintigrating tab PO PRN (22:45)
[2022-04-24] MEDS ORDERED: HYDROcodone/acetaminophen 5mg/325mg tablet PO PRN (22:45)
[2022-04-24] MEDS: normal saline 1000ml 1,000 ML IV SCH (22:45)
[2022-04-24] MEDS ORDERED: bisacodyl 10mg suppository rectal RC PRN (22:45)
[2022-04-24] MEDS ORDERED: magnesium hydroxide 30ml (MOM) UD suspension PO PRN (22:45)
[2022-04-24 23:06] LABS: CLARITY,URINE CLEAR (Clear); COLOR,URINE YELLOW (Yellow); GLUCOSE, URINE NEGATIVE (Neg); KETONES,URINE NEGATIVE (Neg); LEUKOCYTE ESTERASE ,URINE NEGATIVE (Neg); NITRITES, URINE NEGATIVE (Neg); OCCULT BLOOD,URINE NEGATIVE (Neg); PH,URINE 7.5 (4.8-8.0); PROTEIN,URINE NEGATIVE (Neg)
[2022-04-24 23:22] LABS: UA COLLECTION TYPE CLN CATCH MIDSTREAM; URINE AMPHETAMINE SCREEN POSITIVE (Neg); URINE BARBITUATE SCREEN NEGATIVE (Neg); URINE BENZODIAZEPINES SCREEN NEGATIVE (Neg); URINE CANNABINOID SCREEN NEGATIVE (Neg); URINE COCAINE SCREEN NEGATIVE (Neg); URINE METHADONE SCREEN POSITIVE (Neg); URINE OPIATE SCREEN NEGATIVE (Neg); URINE PHENCYCLIDINE SCREEN NEGATIVE (Neg)
[2022-04-24 23:34] LABS: APTT 24 SECONDS (22-32); D-DIMER 1.17 MG/L FEU (0-0.50)
[2022-04-25] MEDS ORDERED: LISI20TA28 PO
[2022-04-25 00:05] LABS: BASOPHILS # (AUTO) 0.1 X10'3 (0-0.2)
[2022-04-25 00:07] LABS: BASOPHILS % (AUTO) 0.4 % (0-1); EOSINOPHILS % (AUTO) 0.2 % (0-6); HEMATOCRIT 38.2 % (42.0-52.0); HEMOGLOBIN 12.7 g/dl (14.0-17.9); LYMPHOCYTES # (AUTO) 0.9 X10'3 (1.1-4.8); LYMPHOCYTES % (AUTO) 4.4 % (21-51); MEAN CORPUSCULAR HEMOGLOBIN 28.6 PG (27.0-31.0); MEAN CORPUSCULAR HGB CONC 33.2 g/dL (33.0-36.5); MEAN CORPUSCULAR VOLUME 86.3 FL (78-98); MEAN PLATELET VOLUME 6.5 FL (7.4-10.4); MONOCYTES # (AUTO) 0.8 X10'3 (0-0.9); NEUTROPHILS # (AUTO) 18.7 X10'3 (1.8-7.7); PLATELET COUNT 265 X10'3 (140-440); RED BLOOD COUNT 4.43 X10'6 (4.70-6.10); WHITE BLOOD COUNT 20.5 X10'3 (4.5-11.0)
[2022-04-25 00:27] LABS: ALANINE AMINOTRANSFERASE 68 U/L (12-78); ALBUMIN 3.1 G/DL (3.4-5.0); ALBUMIN/GLOBULIN RATIO 0.6 (1.1-1.5); ALKALINE PHOSPHATASE 166 IU/L (46-116); ANION GAP 9 (8-16); BLOOD UREA NITROGEN 19 MG/DL (7-18); BUN/CREATININE RATIO 16.8 (5.4-32.0); CALCIUM 9.1 MG/DL (8.5-10.1); CHLORIDE 97 MMOL/L (99-107); CREATININE 1.13 MG/DL (0.60-1.10); GLUCOSE 115 MG/DL (70-104); SODIUM 135 MMOL/L (135-145); eGFR 70 ML/MIN
[2022-04-25 00:37] LABS: C-REACTIVE PROTEIN 4.54 MG/DL (0.0-0.5); ETHANOL < 0.010 GM/DL (0.0-0.010); LIPASE < 50 U/L (73-393); MAGNESIUM 1.9 MG/DL (1.5-2.4)
[2022-04-25 00:41] LABS: ASPARTATE AMINO TRANSFERASE 45 U/L (10-37); CREATINE KINASE 254 U/L (39-308); PHOSPHORUS 3.3 MG/DL (2.3-4.5); POTASSIUM 4.1 MMOL/L (3.5-5.1)
[2022-04-25 01:27] LABS: PLATELET ESTIMATE NORMAL; TOTAL CELLS COUNTED 100
[2022-04-25 01:31] LABS: SMUDGE CELLS FEW
[2022-04-25 02:19] LABS: ALANINE AMINOTRANSFERASE 58 U/L (12-78); ALBUMIN 2.6 G/DL (3.4-5.0); ALBUMIN/GLOBULIN RATIO 0.6 (1.1-1.5); ALKALINE PHOSPHATASE 140 IU/L (46-116); ANION GAP 8 (8-16); ASPARTATE AMINO TRANSFERASE 33 U/L (10-37); BASOPHILS # (AUTO) 0.1 X10'3 (0-0.2); BASOPHILS % (AUTO) 0.4 % (0-1); BLOOD UREA NITROGEN 18 MG/DL (7-18); CALCIUM 7.7 MG/DL (8.5-10.1); CHLORIDE 102 MMOL/L (99-107); CREATININE 1.06 MG/DL (0.60-1.10); EOSINOPHILS % (AUTO) 0.1 % (0-6); GLUCOSE 80 MG/DL (70-104); HEMOGLOBIN 12.5 g/dl (14.0-17.9); LYMPHOCYTES % (AUTO) 4.6 % (21-51); MEAN CORPUSCULAR HEMOGLOBIN 28.3 PG (27.0-31.0); MEAN CORPUSCULAR HGB CONC 32.8 g/dL (33.0-36.5); MEAN CORPUSCULAR VOLUME 86.2 FL (78-98); MEAN PLATELET VOLUME 6.3 FL (7.4-10.4); MONOCYTES % (AUTO) 4.6 % (2-12); NEUTROPHILS # (AUTO) 18.8 X10'3 (1.8-7.7); NEUTROPHILS % (AUTO) 90.3 % (42-75); PLATELET COUNT 235 X10'3 (140-440); POTASSIUM 3.4 MMOL/L (3.5-5.1); RED BLOOD COUNT 4.41 X10'6 (4.70-6.10); RED CELL DISTRIBUTION WIDTH 14.8 % (11.5-14.5); SODIUM 137 MMOL/L (135-145); TOTAL CARBON DIOXIDE 27.1 MMOL/L (24-32); TOTAL PROTEIN 6.8 G/DL (6.4-8.2); WHITE BLOOD COUNT 20.8 X10'3 (4.5-11.0); eGFR 76 ML/MIN
[2022-04-25] MEDS ORDERED: METH10OR2 PO (07:27)
--- NOTE | 2022-04-25 07:30 | NUR ---
Pt requesting daily methadone dose. Hospitalist Dr. Celaya called and requested continuation of med. MD request med verified that pt is receiving and then may continue dosing. Pharmacy called methadone clinic and verified pt taking Methadone 149mg PO daily, last dose yesterday.
[2022-04-25] MEDS ORDERED: methadone 10mg tablet PO SCH (08:00)
[2022-04-25] MEDS ORDERED: piperacillin/tazo 4.5gm/100ml 100 ML IV SCH ×2 (08:00→23:07)
[2022-04-25] MEDS: vancomycin/NS 1 GM ADD-VANTAGE 250 ML IV SCH ×2 (09:35→17:57)
[2022-04-25] MEDS: methadone 10mg tablet PO SCH (09:41)
[2022-04-25] MEDS: apixaban 5mg tablet PO SCH ×2 (09:41→22:44)
[2022-04-25] MEDS: docusate sod 100mg capsule PO SCH ×2 (09:41→22:44)
[2022-04-25] MEDS: lisinopril 20mg tablet PO SCH (09:42)
[2022-04-25] MEDS: chlorthalidone 25mg tablet PO SCH ×2 (09:43→11:36)
[2022-04-25] MEDS: furosemide 10 MG/1 ML 10ml inj IV SCH ×2 (09:44→22:45)
[2022-04-25] MEDS: pantoprazole 40mg Tablet.DR PO SCH (09:45)
--- NOTE | 2022-04-25 10:01 | NUR ---
Paged Dr. Celaya regarding missed third troponin. Dr. Celaya stated to add third troponin on for now. Order placed per telephone order.
--- NOTE | 2022-04-25 12:43 | NUR ---
Met with patient in regards to substance use and to see if patient wanted resources for treatment options. Patient declined resources.
--- NOTE | 2022-04-25 14:29 | NUR ---
RECOMMEND: 1. Daily bathing with no rinse skin cleanser. 2. Cream/Lotion to be applied to skin after bathing. 3. Ada care every shift and prn soiling followed by Barrier Cream. 4. Assist patient to turn every 1-2 hrs and reposition with pillows every 1-2 hours put foot of bed up before head of bed to prevent worsening of friction/shearing injury. 6. Float heels to offload pressure. 5. Cleanse BLE with no rinse cleanser, apply skin repair cream DAILY. Addendum: 04/25/22 at 1429 by My Garnett RN Amended: Links added.
[2022-04-25 19:35] VITALS: BP 137/82
--- NOTE | 2022-04-25 19:35 | NUR ---
PATIENT ADMITTED TO ROOM 357B FROM ER FOR CELLULITIS THE LEFT LEG. PLACED COMFORTABLE IN BED. VITAL SIGNS TAKEN AND RECORDED.
[2022-04-25 20:00] VITALS: BP 133/80
[2022-04-25] MEDS: potassium Cl 20 mEq SR tablet PO PRN (23:18)
[2022-04-25] MEDS ORDERED: VANCOMYCIN LEVEL IV ONE (23:30)
[2022-04-25] MEDS: piperacillin/tazo 4.5gm/100ml 100 ML IV SCH (23:41)
[2022-04-26] MEDS: vancomycin/NS 1 GM ADD-VANTAGE 250 ML IV SCH ×4 (00:34→23:24)
[2022-04-26 06:00] VITALS: BP 133/79
[2022-04-26 06:36] LABS: BASOPHILS # (AUTO) 0.1 X10'3 (0-0.2); BASOPHILS % (AUTO) 0.7 % (0-1); EOSINOPHILS # (AUTO) 0.3 X10'3 (0-0.9); EOSINOPHILS % (AUTO) 3.1 % (0-6); HEMATOCRIT 35.6 % (42.0-52.0); LYMPHOCYTES # (AUTO) 1.1 X10'3 (1.1-4.8); LYMPHOCYTES % (AUTO) 12.6 % (21-51); MEAN CORPUSCULAR HEMOGLOBIN 29.2 PG (27.0-31.0); MEAN CORPUSCULAR HGB CONC 33.9 g/dL (33.0-36.5); MEAN CORPUSCULAR VOLUME 86.1 FL (78-98); MEAN PLATELET VOLUME 6.2 FL (7.4-10.4); MONOCYTES # (AUTO) 0.9 X10'3 (0-0.9); MONOCYTES % (AUTO) 10.5 % (2-12); NEUTROPHILS # (AUTO) 6.3 X10'3 (1.8-7.7); NEUTROPHILS % (AUTO) 73.1 % (42-75); PLATELET COUNT 230 X10'3 (140-440); RED BLOOD COUNT 4.13 X10'6 (4.70-6.10); WHITE BLOOD COUNT 8.6 X10'3 (4.5-11.0)
--- NOTE | 2022-04-26 06:40 | NUR ---
Problems reprioritized. Patient report given, questions answered & plan of care reviewed with XIN RAMÍREZ.
--- NOTE | 2022-04-26 06:47 | NUR ---
Patient in room MUNA 357. I have received report from Sharifa Skaggs RN and had the opportunity to ask questions and assume patient care.
[2022-04-26 07:04] LABS: ANION GAP 7 (8-16); BILIRUBIN,TOTAL 0.9 MG/DL (0.1-1.0); BLOOD UREA NITROGEN 21 MG/DL (7-18); BUN/CREATININE RATIO 19.8 (5.4-32.0); CALCIUM 8.8 MG/DL (8.5-10.1); CHLORIDE 97 MMOL/L (99-107); CREATININE 1.06 MG/DL (0.60-1.10); GLUCOSE 104 MG/DL (70-104); SODIUM 135 MMOL/L (135-145); TOTAL CARBON DIOXIDE 31.4 MMOL/L (24-32); TOTAL PROTEIN 7.8 G/DL (6.4-8.2); eGFR 76 ML/MIN
[2022-04-26 07:05] LABS: ALANINE AMINOTRANSFERASE 54 U/L (12-78); ALBUMIN 2.9 G/DL (3.4-5.0); ALBUMIN/GLOBULIN RATIO 0.6 (1.1-1.5); ALKALINE PHOSPHATASE 132 IU/L (46-116); ASPARTATE AMINO TRANSFERASE 34 U/L (10-37)
[2022-04-26 07:12] LABS: POTASSIUM 2.9 MMOL/L (3.5-5.1)
--- NOTE | 2022-04-26 07:14 | NUR ---
PAGER ID: [phone] MESSAGE: Omid Crews#[id number] FYI- positive blood iv site right hand, gram positive rods resembling dips. Also K critical value at 2.9. Thank you [facility] [id number]
[2022-04-26] MEDS: potassium Cl 20 mEq SR tablet PO PRN ×2 (08:27→20:48)
[2022-04-26] MEDS: apixaban 5mg tablet PO SCH ×2 (08:27→20:48)
[2022-04-26] MEDS: docusate sod 100mg capsule PO SCH ×2 (08:27→20:48)
[2022-04-26] MEDS: pantoprazole 40mg Tablet.DR PO SCH (08:27)
[2022-04-26] MEDS: methadone 10mg tablet PO SCH (08:28)
[2022-04-26] MEDS: lisinopril 20mg tablet PO SCH (08:32)
[2022-04-26] MEDS: furosemide 10 MG/1 ML 10ml inj IV SCH ×2 (10:04→20:47)
[2022-04-26] MEDS: chlorthalidone 25mg tablet PO SCH (10:04)
[2022-04-26 11:00] VITALS: BP 122/73
[2022-04-26 20:00] VITALS: BP 149/72
--- NOTE | 2022-04-26 23:33 | NUR ---
Notified of critical lab result for positive blood cultures: gram positive cocci in cluster in aerobic bottle from right hand. MD Bal notified with no new orders at this time as patient on ABX currently.
[2022-04-27] VITALS: BP 142/74
[2022-04-27] MEDS: normal saline 1000ml 1,000 ML IV SCH (01:14)
[2022-04-27] MEDS: piperacillin/tazo 4.5gm/100ml 100 ML IV SCH ×3 (01:14→22:54)
[2022-04-27] MEDS: potassium Cl 20 mEq SR tablet PO PRN ×3 (02:11→19:52)
[2022-04-27 06:24] LABS: BASOPHILS # (AUTO) 0.1 X10'3 (0-0.2); BASOPHILS % (AUTO) 0.8 % (0-1); EOSINOPHILS # (AUTO) 0.3 X10'3 (0-0.9); EOSINOPHILS % (AUTO) 4.2 % (0-6); HEMATOCRIT 37.6 % (42.0-52.0); HEMOGLOBIN 12.5 g/dl (14.0-17.9); LYMPHOCYTES # (AUTO) 1.4 X10'3 (1.1-4.8); LYMPHOCYTES % (AUTO) 19.3 % (21-51); MEAN CORPUSCULAR HGB CONC 33.4 g/dL (33.0-36.5); MEAN CORPUSCULAR VOLUME 86.9 FL (78-98); MEAN PLATELET VOLUME 6.6 FL (7.4-10.4); MONOCYTES # (AUTO) 1.2 X10'3 (0-0.9); MONOCYTES % (AUTO) 15.9 % (2-12); NEUTROPHILS # (AUTO) 4.4 X10'3 (1.8-7.7); NEUTROPHILS % (AUTO) 59.8 % (42-75); PLATELET COUNT 245 X10'3 (140-440); RED BLOOD COUNT 4.33 X10'6 (4.70-6.10); RED CELL DISTRIBUTION WIDTH 15.1 % (11.5-14.5); WHITE BLOOD COUNT 7.3 X10'3 (4.5-11.0)
[2022-04-27 06:49] LABS: ALANINE AMINOTRANSFERASE 51 U/L (12-78); ALBUMIN 2.8 G/DL (3.4-5.0); ALBUMIN/GLOBULIN RATIO 0.5 (1.1-1.5); ALKALINE PHOSPHATASE 155 IU/L (46-116); ANION GAP 7 (8-16); ASPARTATE AMINO TRANSFERASE 31 U/L (10-37); BILIRUBIN,TOTAL 0.7 MG/DL (0.1-1.0); BLOOD UREA NITROGEN 19 MG/DL (7-18); BUN/CREATININE RATIO 19.6 (5.4-32.0); CALCIUM 8.9 MG/DL (8.5-10.1); CHLORIDE 98 MMOL/L (99-107); CREATININE 0.97 MG/DL (0.60-1.10); GLUCOSE 97 MG/DL (70-104); POTASSIUM 3.2 MMOL/L (3.5-5.1); SODIUM 137 MMOL/L (135-145); TOTAL CARBON DIOXIDE 31.9 MMOL/L (24-32); eGFR 84 ML/MIN
--- NOTE | 2022-04-27 06:52 | NUR ---
Patient in room MUNA 357. I have received report from Farhana RAMÍREZ and had the opportunity to ask questions and assume patient care.
[2022-04-27 08:00] VITALS: BP 120/76
[2022-04-27] MEDS: vancomycin/NS 1 GM ADD-VANTAGE 250 ML IV SCH ×2 (09:57→16:24)
[2022-04-27] MEDS: pantoprazole 40mg Tablet.DR PO SCH (09:58)
[2022-04-27] MEDS: furosemide 10 MG/1 ML 10ml inj IV SCH ×2 (09:58→19:51)
[2022-04-27] MEDS: chlorthalidone 25mg tablet PO SCH (09:58)
[2022-04-27] MEDS: apixaban 5mg tablet PO SCH ×2 (09:58→19:52)
[2022-04-27] MEDS: docusate sod 100mg capsule PO SCH ×2 (09:58→19:52)
[2022-04-27] MEDS: lisinopril 20mg tablet PO SCH (09:59)
[2022-04-27] MEDS: methadone 10mg tablet PO SCH (10:59)
[2022-04-27 12:00] VITALS: BP 126/65
--- NOTE | 2022-04-27 18:19 | NUR ---
Patient in room MUNA 357. I have received report from Vivian RAMÍREZ and had the opportunity to ask questions and assume patient care.
--- NOTE | 2022-04-27 18:50 | NUR ---
Patient in room MUNA 357. I have received report from Mari RAMÍREZ and had the opportunity to ask questions and assume patient care.
--- NOTE | 2022-04-27 18:57 | NUR ---
Problems reprioritized. Patient report given, questions answered & plan of care reviewed with Vivian RAMÍREZ.
[2022-04-27 20:00] VITALS: BP 124/59
[2022-04-28] VITALS: BP 123/65
[2022-04-28] MEDS: vancomycin/NS 1 GM ADD-VANTAGE 250 ML IV SCH ×3 (00:52→16:02)
--- NOTE | 2022-04-28 01:28 | NUR ---
Lotion applied to patient bilat legs. No c/o pain. report given to Farhana RAMÍREZ
[2022-04-28 06:30] VITALS: BP 117/66
[2022-04-28 06:37] LABS: BASOPHILS # (AUTO) 0.1 X10'3 (0-0.2); BASOPHILS % (AUTO) 0.9 % (0-1); EOSINOPHILS # (AUTO) 0.3 X10'3 (0-0.9); EOSINOPHILS % (AUTO) 3.5 % (0-6); HEMATOCRIT 38.9 % (42.0-52.0); LYMPHOCYTES % (AUTO) 24.2 % (21-51); MEAN CORPUSCULAR HGB CONC 33.4 g/dL (33.0-36.5); MEAN CORPUSCULAR VOLUME 86.7 FL (78-98); MEAN PLATELET VOLUME 6.8 FL (7.4-10.4); MONOCYTES # (AUTO) 0.9 X10'3 (0-0.9); MONOCYTES % (AUTO) 10.5 % (2-12); NEUTROPHILS # (AUTO) 5.1 X10'3 (1.8-7.7); NEUTROPHILS % (AUTO) 60.9 % (42-75); PLATELET COUNT 330 X10'3 (140-440); RED BLOOD COUNT 4.48 X10'6 (4.70-6.10); RED CELL DISTRIBUTION WIDTH 15.1 % (11.5-14.5); WHITE BLOOD COUNT 8.3 X10'3 (4.5-11.0)
--- NOTE | 2022-04-28 07:00 | NUR ---
Patient in room MUNA 357. I have received report from DARRELL Delcid and had the opportunity to ask questions and assume patient care.
--- NOTE | 2022-04-28 07:06 | NUR ---
Problems reprioritized. Patient report given, questions answered & plan of care reviewed with Leatha RN.
[2022-04-28 07:12] LABS: ALANINE AMINOTRANSFERASE 52 U/L (12-78); ALBUMIN 3.1 G/DL (3.4-5.0); ALBUMIN/GLOBULIN RATIO 0.6 (1.1-1.5); ALKALINE PHOSPHATASE 137 IU/L (46-116); ANION GAP 10 (8-16); ASPARTATE AMINO TRANSFERASE 31 U/L (10-37); BILIRUBIN,TOTAL 0.9 MG/DL (0.1-1.0); BLOOD UREA NITROGEN 23 MG/DL (7-18); BUN/CREATININE RATIO 18.1 (5.4-32.0); CHLORIDE 96 MMOL/L (99-107); CREATININE 1.27 MG/DL (0.60-1.10); GLUCOSE 112 MG/DL (70-104); POTASSIUM 3.1 MMOL/L (3.5-5.1); SODIUM 136 MMOL/L (135-145); TOTAL CARBON DIOXIDE 30.4 MMOL/L (24-32); TOTAL PROTEIN 8.4 G/DL (6.4-8.2); eGFR 62 ML/MIN
[2022-04-28 09:04] VITALS: BP 117/66
[2022-04-28] MEDS: furosemide 10 MG/1 ML 10ml inj IV SCH ×2 (09:32→20:59)
[2022-04-28] MEDS: methadone 10mg tablet PO SCH (09:40)
[2022-04-28] MEDS: apixaban 5mg tablet PO SCH ×2 (09:41→20:59)
[2022-04-28] MEDS: potassium Cl 20 mEq SR tablet PO PRN ×3 (09:42→18:02)
[2022-04-28] MEDS: pantoprazole 40mg Tablet.DR PO SCH (09:42)
[2022-04-28] MEDS: lisinopril 20mg tablet PO SCH (09:42)
[2022-04-28] MEDS: docusate sod 100mg capsule PO SCH ×2 (09:42→20:59)
[2022-04-28] MEDS: chlorthalidone 25mg tablet PO SCH (09:42)
[2022-04-28 11:00] VITALS: BP 120/72
--- NOTE | 2022-04-28 14:33 | NUR ---
Calorie count consult: Pt on a 2 g Na restricted diet, documented with 100% PO intake throughout LOS. Calorie count not indicated at this time. D/w dietary to send double protein with meals for satiety. Pt admit for left leg cellulitis, positive blood cultures with MRSA per physician note. Skin intact per WOC note. LB 04/27. Will continue to follow. Recommendations: 1) Liberalize to regular diet 2) Double eggs WB, double meat BIDLD 3) Routine bowel care 4) Scaled weight this admit; subsequent weekly scaled weights Addendum: 04/28/22 at [address] Amended: Links added.
--- NOTE | 2022-04-28 18:50 | NUR ---
Patient in room MUNA 357. I have received report from DARRELL CARRASCO and had the opportunity to ask questions and assume patient care. Addendum: 04/29/22 at 0522 by Guille Stearns RN Amended: Links added. Addendum: 04/29/22 at 0523 by Guille Stearns RN REPORT RECEIVED FROM DARRELL TAVERAS
--- NOTE | 2022-04-28 18:50 | NUR ---
Problems reprioritized. Patient report given, questions answered & plan of care reviewed with DARRELL Dillard.
[2022-04-28 19:00] VITALS: BP 103/56
--- NOTE | 2022-04-28 19:14 | NUR ---
awake sitting up eating dinner, tray came late. Addendum: 04/28/22 at 1914 by Guille Stearns RN Amended: Links added.
[2022-04-28 20:56] VITALS: BP 131/69
[2022-04-29] VITALS: BP 130/76
[2022-04-29] MEDS: vancomycin/NS 1 GM ADD-VANTAGE 250 ML IV SCH ×3 (00:33→16:26)
--- NOTE | 2022-04-29 05:37 | NUR ---
LABS DRAWN Addendum: 04/29/22 at 0537 by Guille Stearns RN Amended: Links added.
--- NOTE | 2022-04-29 06:29 | NUR ---
Problems reprioritized. Patient report given, questions answered & plan of care reviewed with DARRELL TAVERAS. Addendum: 04/29/22 at 0629 by Guille Stearns RN Amended: Links added.
[2022-04-29 06:30] VITALS: BP 117/67
--- NOTE | 2022-04-29 06:50 | NUR ---
Patient in room MUNA 357. I have received report from DARRELL Dillard and had the opportunity to ask questions and assume patient care.
[2022-04-29 06:56] LABS: ALANINE AMINOTRANSFERASE 44 U/L (12-78); ALBUMIN 2.9 G/DL (3.4-5.0); ALBUMIN/GLOBULIN RATIO 0.6 (1.1-1.5); ALKALINE PHOSPHATASE 157 IU/L (46-116); ANION GAP 6 (8-16); ASPARTATE AMINO TRANSFERASE 27 U/L (10-37); BILIRUBIN,TOTAL 0.6 MG/DL (0.1-1.0); BLOOD UREA NITROGEN 24 MG/DL (7-18); BUN/CREATININE RATIO 22.6 (5.4-32.0); CALCIUM 8.7 MG/DL (8.5-10.1); CHLORIDE 97 MMOL/L (99-107); CREATININE 1.06 MG/DL (0.60-1.10); GLUCOSE 98 MG/DL (70-104); SODIUM 136 MMOL/L (135-145); TOTAL CARBON DIOXIDE 33.3 MMOL/L (24-32); TOTAL PROTEIN 7.8 G/DL (6.4-8.2); eGFR 76 ML/MIN
[2022-04-29 06:59] LABS: POTASSIUM 2.8 MMOL/L (3.5-5.1)
[2022-04-29 07:00] LABS: BASOPHILS # (AUTO) 0.1 X10'3 (0-0.2); BASOPHILS % (AUTO) 0.7 % (0-1); EOSINOPHILS # (AUTO) 0.2 X10'3 (0-0.9); EOSINOPHILS % (AUTO) 2.4 % (0-6); HEMATOCRIT 37.2 % (42.0-52.0); HEMOGLOBIN 12.6 g/dl (14.0-17.9); LYMPHOCYTES % (AUTO) 21.9 % (21-51); MEAN CORPUSCULAR HEMOGLOBIN 28.9 PG (27.0-31.0); MEAN CORPUSCULAR HGB CONC 33.8 g/dL (33.0-36.5); MEAN CORPUSCULAR VOLUME 85.7 FL (78-98); MEAN PLATELET VOLUME 6.6 FL (7.4-10.4); MONOCYTES % (AUTO) 11.3 % (2-12); NEUTROPHILS # (AUTO) 5.7 X10'3 (1.8-7.7); NEUTROPHILS % (AUTO) 63.7 % (42-75); PLATELET COUNT 289 X10'3 (140-440); RED BLOOD COUNT 4.34 X10'6 (4.70-6.10); RED CELL DISTRIBUTION WIDTH 14.7 % (11.5-14.5)
[2022-04-29] MEDS: methadone 10mg tablet PO SCH (08:32)
[2022-04-29] MEDS: furosemide 10 MG/1 ML 10ml inj IV SCH ×2 (08:32→20:19)
[2022-04-29] MEDS: chlorthalidone 25mg tablet PO SCH (08:32)
[2022-04-29] MEDS: lisinopril 20mg tablet PO SCH (08:33)
[2022-04-29] MEDS: apixaban 5mg tablet PO SCH ×2 (08:33→20:19)
[2022-04-29] MEDS: pantoprazole 40mg Tablet.DR PO SCH (08:33)
[2022-04-29] MEDS: docusate sod 100mg capsule PO SCH ×2 (08:33→20:19)
[2022-04-29] MEDS: potassium Cl 20 mEq SR tablet PO PRN ×4 (08:42→21:10)
[2022-04-29] MEDS: potassium Cl 20 mEq SR tablet PO SCH (08:42)
[2022-04-29 11:00] VITALS: BP 154/88
[2022-04-29 18:00] VITALS: BP 129/87
[2022-04-29 22:00] VITALS: BP 120/76
[2022-04-30] MEDS: potassium Cl 20 mEq SR tablet PO SCH ×2 (00:47→08:26)
[2022-04-30] MEDS: vancomycin/NS 1 GM ADD-VANTAGE 250 ML IV SCH ×3 (00:47→17:30)
[2022-04-30] MEDS: potassium Cl 20 mEq SR tablet PO PRN ×2 (00:48→05:11)
[2022-04-30 06:00] VITALS: BP 128/68
[2022-04-30 06:33] LABS: BASOPHILS # (AUTO) 0.1 X10'3 (0-0.2); BASOPHILS % (AUTO) 0.9 % (0-1); EOSINOPHILS # (AUTO) 0.2 X10'3 (0-0.9); EOSINOPHILS % (AUTO) 2.1 % (0-6); HEMATOCRIT 39.4 % (42.0-52.0); HEMOGLOBIN 13.3 g/dl (14.0-17.9); LYMPHOCYTES # (AUTO) 2.2 X10'3 (1.1-4.8); LYMPHOCYTES % (AUTO) 24.4 % (21-51); MEAN CORPUSCULAR HGB CONC 33.8 g/dL (33.0-36.5); MEAN CORPUSCULAR VOLUME 85.8 FL (78-98); MEAN PLATELET VOLUME 6.6 FL (7.4-10.4); MONOCYTES # (AUTO) 0.9 X10'3 (0-0.9); MONOCYTES % (AUTO) 10.3 % (2-12); NEUTROPHILS # (AUTO) 5.5 X10'3 (1.8-7.7); NEUTROPHILS % (AUTO) 62.3 % (42-75); PLATELET COUNT 266 X10'3 (140-440); RED BLOOD COUNT 4.59 X10'6 (4.70-6.10); RED CELL DISTRIBUTION WIDTH 14.9 % (11.5-14.5); WHITE BLOOD COUNT 8.8 X10'3 (4.5-11.0)
[2022-04-30 06:53] LABS: ALANINE AMINOTRANSFERASE 52 U/L (12-78); ALBUMIN 3.3 G/DL (3.4-5.0); ALBUMIN/GLOBULIN RATIO 0.6 (1.1-1.5); ALKALINE PHOSPHATASE 147 IU/L (46-116); ANION GAP 7 (8-16); ASPARTATE AMINO TRANSFERASE 30 U/L (10-37); BILIRUBIN,TOTAL 0.7 MG/DL (0.1-1.0); BLOOD UREA NITROGEN 24 MG/DL (7-18); BUN/CREATININE RATIO 22.6 (5.4-32.0); CALCIUM 9.1 MG/DL (8.5-10.1); CHLORIDE 97 MMOL/L (99-107); CREATININE 1.06 MG/DL (0.60-1.10); GLUCOSE 91 MG/DL (70-104); POTASSIUM 3.7 MMOL/L (3.5-5.1); SODIUM 136 MMOL/L (135-145); TOTAL CARBON DIOXIDE 32.5 MMOL/L (24-32); TOTAL PROTEIN 8.5 G/DL (6.4-8.2); eGFR 76 ML/MIN
[2022-04-30] MEDS: methadone 10mg tablet PO SCH (08:17)
[2022-04-30] MEDS: chlorthalidone 25mg tablet PO SCH (08:19)
[2022-04-30] MEDS: docusate sod 100mg capsule PO SCH ×2 (08:25→21:11)
[2022-04-30] MEDS: furosemide 10 MG/1 ML 10ml inj IV SCH ×2 (08:25→21:12)
[2022-04-30] MEDS: pantoprazole 40mg Tablet.DR PO SCH (08:25)
[2022-04-30] MEDS: apixaban 5mg tablet PO SCH ×2 (08:25→21:10)
[2022-04-30] MEDS: lisinopril 20mg tablet PO SCH (08:30)
[2022-04-30 18:00] VITALS: BP 113/65
--- NOTE | 2022-04-30 18:26 | NUR ---
Report to October RN
[2022-04-30 22:00] VITALS: BP 105/78
[2022-05-01] MEDS: vancomycin/NS 1 GM ADD-VANTAGE 250 ML IV SCH ×3 (00:30→16:34)
[2022-05-01 06:00] VITALS: BP 139/72
--- NOTE | 2022-05-01 07:32 | NUR ---
Patient in room MUNA 357. I have received report from Sue RN and had the opportunity to ask questions and assume patient care.
[2022-05-01] MEDS: furosemide 10 MG/1 ML 10ml inj IV SCH ×2 (07:53→20:18)
[2022-05-01] MEDS: potassium Cl 20 mEq SR tablet PO SCH (07:54)
[2022-05-01] MEDS: chlorthalidone 25mg tablet PO SCH (07:54)
[2022-05-01] MEDS: docusate sod 100mg capsule PO SCH ×2 (07:54→20:00)
[2022-05-01] MEDS: lisinopril 20mg tablet PO SCH (07:55)
[2022-05-01] MEDS: apixaban 5mg tablet PO SCH ×2 (07:55→20:19)
[2022-05-01] MEDS: methadone 10mg tablet PO SCH (07:55)
[2022-05-01] MEDS: pantoprazole 40mg Tablet.DR PO SCH (07:58)
[2022-05-01 10:00] VITALS: BP 137/84
[2022-05-01 12:07] LABS: BASOPHILS # (AUTO) 0.1 X10'3 (0-0.2); BASOPHILS % (AUTO) 0.8 % (0-1); EOSINOPHILS # (AUTO) 0.2 X10'3 (0-0.9); EOSINOPHILS % (AUTO) 2.3 % (0-6); HEMOGLOBIN 13.2 g/dl (14.0-17.9); LYMPHOCYTES # (AUTO) 1.7 X10'3 (1.1-4.8); LYMPHOCYTES % (AUTO) 18.9 % (21-51); MEAN CORPUSCULAR HEMOGLOBIN 29.1 PG (27.0-31.0); MEAN CORPUSCULAR HGB CONC 33.9 g/dL (33.0-36.5); MEAN CORPUSCULAR VOLUME 85.9 FL (78-98); MEAN PLATELET VOLUME 6.6 FL (7.4-10.4); MONOCYTES # (AUTO) 0.9 X10'3 (0-0.9); MONOCYTES % (AUTO) 9.9 % (2-12); NEUTROPHILS # (AUTO) 6.1 X10'3 (1.8-7.7); NEUTROPHILS % (AUTO) 68.1 % (42-75); PLATELET COUNT 350 X10'3 (140-440); RED BLOOD COUNT 4.54 X10'6 (4.70-6.10); RED CELL DISTRIBUTION WIDTH 14.8 % (11.5-14.5)
[2022-05-01 12:17] LABS: ALANINE AMINOTRANSFERASE 52 U/L (12-78); ALBUMIN 3.3 G/DL (3.4-5.0); ALBUMIN/GLOBULIN RATIO 0.6 (1.1-1.5); ALKALINE PHOSPHATASE 161 IU/L (46-116); ANION GAP 6 (8-16); ASPARTATE AMINO TRANSFERASE 31 U/L (10-37); BILIRUBIN,TOTAL 0.6 MG/DL (0.1-1.0); BLOOD UREA NITROGEN 29 MG/DL (7-18); BUN/CREATININE RATIO 25.9 (5.4-32.0); CALCIUM 9.1 MG/DL (8.5-10.1); CHLORIDE 96 MMOL/L (99-107); CREATININE 1.12 MG/DL (0.60-1.10); GLUCOSE 101 MG/DL (70-104); POTASSIUM 3.3 MMOL/L (3.5-5.1); SODIUM 134 MMOL/L (135-145); TOTAL CARBON DIOXIDE 31.8 MMOL/L (24-32); TOTAL PROTEIN 8.5 G/DL (6.4-8.2); eGFR 71 ML/MIN
[2022-05-01] MEDS: potassium Cl 20 mEq SR tablet PO PRN ×2 (16:33→20:20)
[2022-05-01 18:00] VITALS: BP 134/69
--- NOTE | 2022-05-01 18:33 | NUR ---
Problems reprioritized. Patient report given, questions answered & plan of care reviewed with Dina RAMÍREZ.
--- NOTE | 2022-05-01 18:42 | NUR ---
Patient in room MUNA 357. I have received report from Tami RAMÍREZ and had the opportunity to ask questions and assume patient care.
--- NOTE | 2022-05-01 18:48 | NUR ---
Problems reprioritized. Patient report given, questions answered & plan of care reviewed with Dina RAMÍREZ.
[2022-05-01 22:00] VITALS: BP 109/64
[2022-05-02] MEDS: vancomycin/NS 1 GM ADD-VANTAGE 250 ML IV SCH ×4 (00:09→23:55)
[2022-05-02] MEDS: potassium Cl 20 mEq SR tablet PO PRN (00:10)
[2022-05-02 06:00] VITALS: BP 128/86
--- NOTE | 2022-05-02 06:30 | NUR ---
Problems reprioritized. Patient report given, questions answered & plan of care reviewed with Tami RAMÍREZ.
--- NOTE | 2022-05-02 07:16 | NUR ---
Patient in room MUNA 357. I have received report from Dina RAMÍREZ and had the opportunity to ask questions and assume patient care.
[2022-05-02] MEDS ORDERED: VANCOMYCIN LEVEL IV ONE (07:30)
[2022-05-02] MEDS: furosemide 10 MG/1 ML 10ml inj IV SCH ×2 (07:48→08:00)
[2022-05-02] MEDS: lisinopril 20mg tablet PO SCH (08:00)
[2022-05-02] MEDS: chlorthalidone 25mg tablet PO SCH (08:00)
[2022-05-02 08:01] VITALS: BP 106/50
[2022-05-02 08:15] LABS: BASOPHILS # (AUTO) 0.1 X10'3 (0-0.2); EOSINOPHILS # (AUTO) 0.2 X10'3 (0-0.9); HEMATOCRIT 38.4 % (42.0-52.0); HEMOGLOBIN 12.8 g/dl (14.0-17.9); LYMPHOCYTES # (AUTO) 1.8 X10'3 (1.1-4.8); LYMPHOCYTES % (AUTO) 21.7 % (21-51); MEAN CORPUSCULAR HEMOGLOBIN 28.7 PG (27.0-31.0); MEAN CORPUSCULAR HGB CONC 33.2 g/dL (33.0-36.5); MEAN CORPUSCULAR VOLUME 86.4 FL (78-98); MEAN PLATELET VOLUME 6.5 FL (7.4-10.4); MONOCYTES # (AUTO) 0.7 X10'3 (0-0.9); MONOCYTES % (AUTO) 8.5 % (2-12); NEUTROPHILS # (AUTO) 5.5 X10'3 (1.8-7.7); NEUTROPHILS % (AUTO) 65.8 % (42-75); PLATELET COUNT 315 X10'3 (140-440); RED BLOOD COUNT 4.45 X10'6 (4.70-6.10); RED CELL DISTRIBUTION WIDTH 14.9 % (11.5-14.5); WHITE BLOOD COUNT 8.3 X10'3 (4.5-11.0)
[2022-05-02] MEDS: docusate sod 100mg capsule PO SCH ×2 (08:24→20:00)
[2022-05-02] MEDS: pantoprazole 40mg Tablet.DR PO SCH (08:24)
[2022-05-02] MEDS: apixaban 5mg tablet PO SCH ×2 (08:24→21:13)
[2022-05-02 08:26] LABS: ALANINE AMINOTRANSFERASE 57 U/L (12-78); ALBUMIN 3.3 G/DL (3.4-5.0); ALBUMIN/GLOBULIN RATIO 0.7 (1.1-1.5); ALKALINE PHOSPHATASE 143 IU/L (46-116); ANION GAP 6 (8-16); ASPARTATE AMINO TRANSFERASE 32 U/L (10-37); BILIRUBIN,TOTAL 0.6 MG/DL (0.1-1.0); BLOOD UREA NITROGEN 34 MG/DL (7-18); BUN/CREATININE RATIO 25.4 (5.4-32.0); CALCIUM 9.2 MG/DL (8.5-10.1); CHLORIDE 96 MMOL/L (99-107); CREATININE 1.34 MG/DL (0.60-1.10); GLUCOSE 139 MG/DL (70-104); POTASSIUM 3.3 MMOL/L (3.5-5.1); SODIUM 136 MMOL/L (135-145); TOTAL CARBON DIOXIDE 33.6 MMOL/L (24-32); TOTAL PROTEIN 8.3 G/DL (6.4-8.2); VANCOMYCIN,TROUGH 19.5 UG/ML (6.0-14.0); eGFR 58 ML/MIN
[2022-05-02] MEDS: potassium Cl 20 mEq SR tablet PO SCH (08:26)
[2022-05-02] MEDS: methadone 10mg tablet PO SCH (08:27)
[2022-05-02 10:00] VITALS: BP 124/71
--- NOTE | 2022-05-02 10:04 | NUR ---
When Dr Flower rounded I advised her of patient decreased Blood pressure this am. Aware Lisinopril , Lasix and Chlorthalidone. Received orders to decrease Lasix to 40 mg PO daily, Lisinopril to 5mg daily.
--- NOTE | 2022-05-02 10:40 | NUR ---
PATIENT HAS REFUSED WOUND CARE ORDERS/LOTION ON FEET AND LEGS. RN AWARE.
[2022-05-02] MEDS ORDERED: FURO40TA4 PO (11:20)
[2022-05-02] MEDS ORDERED: POTA-197 PO (11:20)
[2022-05-02] MEDS ORDERED: LISI5TAB22 PO (11:20)
--- NOTE | 2022-05-02 12:24 | NUR ---
PAGER ID: [phone] MESSAGE: Tami-[facility] [id number] Re: Crew [id number] do you want one set of culture from PICC or both as sticks?
[2022-05-02] MEDS: furosemide 40mg tablet PO SCH (12:25)
--- NOTE | 2022-05-02 13:04 | NUR ---
Per Dr Stu parrish to draw 2nd blood culture from arm but try and get culture from right arm the same arm as the PICC Addendum: 05/02/22 at 1305 by Tami Russell RN Advised Lab, Also paged for Echo ordered by Dr Peraza
[2022-05-02] MEDS ORDERED: AMOX-580 PO (13:37)
[2022-05-02 13:55] VITALS: BP 119/81
--- NOTE | 2022-05-02 14:55 | NUR ---
Student documentation: I have reviewed and agree with all interventions, assessments performed and documented by Nyla ATWOOD student.
[2022-05-02 18:00] VITALS: BP 137/77
--- NOTE | 2022-05-02 18:10 | NUR ---
Problems reprioritized. Patient report given, questions answered & plan of care reviewed with Dina RAMÍREZ.
--- NOTE | 2022-05-02 18:15 | NUR ---
Patient in room MUNA 357. I have received report from Tami RAMÍREZ and had the opportunity to ask questions and assume patient care.
[2022-05-02 22:30] VITALS: BP 137/91
[2022-05-03] MEDS: potassium Cl 20 mEq SR tablet PO PRN (01:44)
--- NOTE | 2022-05-03 01:46 | NUR ---
Patient received his first 20mg potassium pill but apparently it did not scan on the -sep. I have just given the 2nd 20mg K-dur,
[2022-05-03 05:56] LABS: BASOPHILS # (AUTO) 0.1 X10'3 (0-0.2); BASOPHILS % (AUTO) 1.1 % (0-1); EOSINOPHILS # (AUTO) 0.3 X10'3 (0-0.9); EOSINOPHILS % (AUTO) 3.9 % (0-6); HEMATOCRIT 37.9 % (42.0-52.0); HEMOGLOBIN 12.7 g/dl (14.0-17.9); LYMPHOCYTES % (AUTO) 27.8 % (21-51); MEAN CORPUSCULAR HEMOGLOBIN 28.9 PG (27.0-31.0); MEAN CORPUSCULAR HGB CONC 33.5 g/dL (33.0-36.5); MEAN CORPUSCULAR VOLUME 86.2 FL (78-98); MEAN PLATELET VOLUME 6.5 FL (7.4-10.4); MONOCYTES # (AUTO) 0.6 X10'3 (0-0.9); MONOCYTES % (AUTO) 8.8 % (2-12); NEUTROPHILS # (AUTO) 4.2 X10'3 (1.8-7.7); NEUTROPHILS % (AUTO) 58.4 % (42-75); PLATELET COUNT 341 X10'3 (140-440); RED BLOOD COUNT 4.39 X10'6 (4.70-6.10); RED CELL DISTRIBUTION WIDTH 14.8 % (11.5-14.5); WHITE BLOOD COUNT 7.2 X10'3 (4.5-11.0)
[2022-05-03 06:00] VITALS: BP 145/76
[2022-05-03 06:09] LABS: ALANINE AMINOTRANSFERASE 69 U/L (12-78); ALBUMIN 3.2 G/DL (3.4-5.0); ALBUMIN/GLOBULIN RATIO 0.6 (1.1-1.5); ALKALINE PHOSPHATASE 178 IU/L (46-116); ANION GAP 6 (8-16); ASPARTATE AMINO TRANSFERASE 40 U/L (10-37); BILIRUBIN,TOTAL 0.5 MG/DL (0.1-1.0); BLOOD UREA NITROGEN 28 MG/DL (7-18); BUN/CREATININE RATIO 25.2 (5.4-32.0); CALCIUM 9.1 MG/DL (8.5-10.1); CHLORIDE 99 MMOL/L (99-107); CREATININE 1.11 MG/DL (0.60-1.10); GLUCOSE 103 MG/DL (70-104); POTASSIUM 3.8 MMOL/L (3.5-5.1); SODIUM 139 MMOL/L (135-145); TOTAL CARBON DIOXIDE 34.5 MMOL/L (24-32); TOTAL PROTEIN 8.2 G/DL (6.4-8.2); eGFR 72 ML/MIN
--- NOTE | 2022-05-03 06:30 | NUR ---
Problems reprioritized. Patient report given, questions answered & plan of care reviewed with Tami Richmond.
--- NOTE | 2022-05-03 07:15 | NUR ---
Dr Flower called stated patient can be discharge with PO antibiotics DC PICC line
[2022-05-03] MEDS: docusate sod 100mg capsule PO SCH (08:00)
[2022-05-03] MEDS ORDERED: furosemide 40mg tablet PO SCH (08:00)
[2022-05-03] MEDS ORDERED: lisinopril 5mg tablet PO SCH (08:00)
[2022-05-03] MEDS: methadone 10mg tablet PO SCH (08:44)
[2022-05-03] MEDS: chlorthalidone 25mg tablet PO SCH (08:47)
[2022-05-03] MEDS: furosemide 40mg tablet PO SCH (08:47)
[2022-05-03] MEDS: pantoprazole 40mg Tablet.DR PO SCH (08:49)
[2022-05-03] MEDS: apixaban 5mg tablet PO SCH (08:49)
[2022-05-03] MEDS: potassium Cl 20 mEq SR tablet PO SCH (08:49)
[2022-05-03] MEDS: vancomycin/NS 1 GM ADD-VANTAGE 250 ML IV SCH (08:50)
[2022-05-03 10:00] VITALS: BP 139/77
--- NOTE | 2022-05-03 12:05 | NUR ---
Patients discharge reviewed with patient and patient verbalized understanding. Patients PICC DC"d by Maureen Azul state student with her preceptor Dianne Chilel Patient tolerated well. Patient states he has all his belongings. Patient taken to lobby via wheelchair by JAYLNO Diana. Patients mother is coming to pick patient up.
== END 2022-05-03 12:05 | disposition home health service (06) | DRG 383 ==
LOC: ER 17:40 → ED HOLD 22:49 → SUR 3N 04-25 19:55
PROVIDERS: ADMIT Family Medicine; ATTEND Internal Medicine
PROC: 02HV33Z Insertion of Infusion Device into Superior Vena Cava, Percutaneous Approach (ICD-10-PCS; principal; 2022-04-28)
PROC: B548ZZA Ultrasonography of Superior Vena Cava, Guidance (ICD-10-PCS; 2022-04-28)
DX: L03.116 Cellulitis of left lower limb (principal); I50.33 Acute on chronic diastolic (congestive) heart failure; I82.432 Acute embolism and thrombosis of left popliteal vein; Z68.43 Body mass index [BMI] 50.0-59.9, adult; I87.2 Venous insufficiency (chronic) (peripheral); D64.9 Anemia, unspecified; L03.115 Cellulitis of right lower limb; I11.0 Hypertensive heart disease with heart failure; K21.9 Gastro-esophageal reflux disease without esophagitis; E66.01 Morbid (severe) obesity due to excess calories; I82.562 Chronic embolism and thrombosis of left calf muscular vein; I82.532 Chronic embolism and thrombosis of left popliteal vein; B95.62 Methicillin resistant Staphylococcus aureus infection as the cause of diseases classified elsewhere; E87.6 Hypokalemia; F11.90 Opioid use, unspecified, uncomplicated; M19.90 Unspecified osteoarthritis, unspecified site; F15.129 Other stimulant abuse with intoxication, unspecified; I89.0 Lymphedema, not elsewhere classified; K76.0 Fatty (change of) liver, not elsewhere classified; Z56.0 Unemployment, unspecified; Z86.14 Personal history of Methicillin resistant Staphylococcus aureus infection; Z86.711 Personal history of pulmonary embolism; Z79.899 Other long term (current) drug therapy; Z71.51 Drug abuse counseling and surveillance of drug abuser
CPT/HCPCS: 36415; 36569; 71045; 76942; 80053; 80202; 80305; 80320; 81003; 82550; 83605; 83690; 83735; 83880; 84100; 84132; 84145; 84443; 84484; 85007; 85025; 85379; 85610; 85651; 85730; 86140; 87040; 87077; 87081; 93005; 93306; 93971; 96365; 99285; A6258; A6449; C1751; G0378; J0696; J1940; J2543; J3370; J7030; J7040; Q0163

== ENCOUNTER 2022-11-17 06:43 | Inpatient (IN) | payer MEDICAID ==
[~2022-11-17] VITALS: Ht 188 cm; Wt 200.0 kg
[~2022-11-17 06:43] MED LIST changes: -CEPH-585 PO; +FURO40TA4 PO; -HYDR12.55 PO; -LISI10TA27 PO; +LISI5TAB22 PO; +METH10OR2 PO; +POTA-197 PO
[2022-11-17 08:21] LABS: CLARITY,URINE SLIGHTLY CLOUDY (Clear); COLOR,URINE YELLOW (Yellow); GLUCOSE, URINE NEGATIVE (Neg); KETONES,URINE NEGATIVE (Neg); LEUKOCYTE ESTERASE ,URINE NEGATIVE (Neg); NITRITES, URINE NEGATIVE (Neg); OCCULT BLOOD,URINE NEGATIVE (Neg); PROTEIN,URINE NEGATIVE (Neg)
[2022-11-17 08:21] LABS: BASOPHILS # (AUTO) 0.1 X10'3 (0-0.2); BASOPHILS % (AUTO) 0.5 % (0-1); EOSINOPHILS # (AUTO) 0.1 X10'3 (0-0.9); EOSINOPHILS % (AUTO) 0.7 % (0-6); HEMATOCRIT 35.9 % (42.0-52.0); HEMOGLOBIN 11.9 g/dl (14.0-17.9); LYMPHOCYTES # (AUTO) 0.9 X10'3 (1.1-4.8); LYMPHOCYTES % (AUTO) 7.2 % (21-51); MEAN CORPUSCULAR HEMOGLOBIN 28.3 PG (27.0-31.0); MEAN CORPUSCULAR HGB CONC 33.2 g/dL (33.0-36.5); MEAN CORPUSCULAR VOLUME 85.2 FL (78-98); MEAN PLATELET VOLUME 6.6 FL (7.4-10.4); MONOCYTES # (AUTO) 0.8 X10'3 (0-0.9); MONOCYTES % (AUTO) 6.2 % (2-12); NEUTROPHILS % (AUTO) 85.4 % (42-75); PLATELET COUNT 281 X10'3 (140-440); RED BLOOD COUNT 4.21 X10'6 (4.70-6.10); RED CELL DISTRIBUTION WIDTH 15.3 % (11.5-14.5); WHITE BLOOD COUNT 12.8 X10'3 (4.5-11.0)
[2022-11-17] MEDS ORDERED: CefTRIAXone/D5W-Rocephin 1gm 50 ML IV ONE (08:25)
[2022-11-17 08:28] LABS: UA COLLECTION TYPE CLN CATCH MIDSTREAM
[2022-11-17 08:30] LABS: BACTERIA,URINE FEW /HPF (Neg); MUCUS STRANDS FEW /LPF (Neg); RBC,URINE 0-2 /HPF (0-2); SQUAMOUS EPITHELIAL CELL,UR MODERATE /LPF (FEW); WBC,URINE 0-4 /HPF (0-4)
[2022-11-17] MEDS ORDERED: normal saline 1000ml 1,000 ML IV ONE (08:35)
[2022-11-17 08:38] LABS: ALANINE AMINOTRANSFERASE 119 U/L (12-78); ALBUMIN/GLOBULIN RATIO 0.7 (1.1-1.5); ALKALINE PHOSPHATASE 184 IU/L (46-116); ANION GAP 9 (8-16); ASPARTATE AMINO TRANSFERASE 60 U/L (10-37); BILIRUBIN,TOTAL 0.7 MG/DL (0.1-1.0); BLOOD UREA NITROGEN 15 MG/DL (7-18); CALCIUM 9.2 MG/DL (8.5-10.1); CHLORIDE 97 MMOL/L (99-107); CREATININE 0.94 MG/DL (0.60-1.10); GLUCOSE 176 MG/DL (70-104); MAGNESIUM 2.1 MG/DL (1.5-2.4); POTASSIUM 3.1 MMOL/L (3.5-5.1); SODIUM 135 MMOL/L (135-145); TOTAL CARBON DIOXIDE 29.3 MMOL/L (24-32); TOTAL PROTEIN 7.4 G/DL (6.4-8.2); eGFR 87 ML/MIN
[2022-11-17] MEDS ORDERED: POTASSIUM BICARB 20meq eff tab 20 MEQ TABLET.EFF PO ONE (08:45)
[2022-11-17] MEDS ORDERED: vancomycin/NS 1 GM ADD-VANTAGE 250 ML IV ONE (08:55)
[2022-11-17] MEDS ORDERED: magnesium hydroxide 30ml (MOM) UD suspension PO PRN (09:55)
[2022-11-17] MEDS ORDERED: HYDROcodone/acetaminophen 5mg/325mg tablet PO PRN (09:55)
[2022-11-17] MEDS: normal saline 1000ml 1,000 ML IV SCH ×2 (09:55→20:49)
[2022-11-17] MEDS ORDERED: potassium Cl 20 mEq SR tablet PO PRN (09:55)
[2022-11-17] MEDS ORDERED: bisacodyl 10mg suppository rectal RC PRN (09:55)
[2022-11-17] MEDS ORDERED: magnesium 2GM in 50ml NS 50 ML IV PRN (09:55)
[2022-11-17] MEDS ORDERED: PERFLUTREN PROTEIN-A MICROSPHR (Optison) 0.22 MG/ML 3ML VIAL IV ONE (09:55)
[2022-11-17] MEDS ORDERED: acetaminophen 650mg rectal suppository RC PRN (09:55)
[2022-11-17] MEDS ORDERED: diphenhydrAMINE 25mg capsule PO PRN (09:55)
[2022-11-17] MEDS ORDERED: acetaminophen 325mg tablet PO PRN (09:55)
[2022-11-17] MEDS ORDERED: mag hydrox/Alum hydrox/simeth 30ml oral suspension PO PRN (09:55)
[2022-11-17] MEDS ORDERED: magnesium Cl slow-release 64mg tablet PO PRN (09:55)
[2022-11-17] MEDS ORDERED: potassium Cl 40MEQ/1/2NS 520ml 520 ML IV PRN (09:55)
[2022-11-17] MEDS ORDERED: ondansetron/PF 4mg/2ml inj IV PRN (09:55)
[2022-11-17] MEDS ORDERED: magnesium 4gm in 100ml NS 100 ML IV PRN (09:55)
[2022-11-17 10:32] LABS: URINE AMPHETAMINE SCREEN POSITIVE (Neg); URINE BARBITUATE SCREEN NEGATIVE (Neg); URINE BENZODIAZEPINES SCREEN NEGATIVE (Neg); URINE CANNABINOID SCREEN NEGATIVE (Neg); URINE COCAINE SCREEN NEGATIVE (Neg); URINE METHADONE SCREEN POSITIVE (Neg); URINE OPIATE SCREEN NEGATIVE (Neg); URINE PHENCYCLIDINE SCREEN NEGATIVE (Neg)
[2022-11-17 11:00] VITALS: BP 117/68
[2022-11-17] MEDS: potassium Cl 20 mEq SR tablet PO PRN ×2 (15:18→21:51)
--- NOTE | 2022-11-17 15:42 | NUR ---
WOUND INFECTION EDUCATION PROVIDED BY WOUND CARE 1. Patient instructed to call their primary doctor, or go the ED immediately if any of the following symptoms occur: * Increased pain in wound * Increase in drainage from the wound * Redness in the skin surrounding the wound * Warmth in the skin surrounding the wound * Bleeding from the wound * Temperature of 101 or greater 2. If any of these occur while in the hospital tell a nurse immediately. Addendum: 11/17/22 at 1542 by Johnna Carrion LVN Amended: Links added.
[2022-11-17] MEDS: vancomycin/NS 1 GM ADD-VANTAGE 250 ML IV SCH (16:10)
[2022-11-17] MEDS: piperacillin/tazo 3.375gm/50ml 50 ML IV SCH (17:44)
[2022-11-17 18:00] VITALS: BP 126/74
--- NOTE | 2022-11-17 18:23 | NUR ---
Problems reprioritized. Patient report given, questions answered & plan of care reviewed with DREW RUSSELL RN.
--- NOTE | 2022-11-17 18:35 | NUR ---
Patient in room ORTHO 4011. I have received report from BENIGNO RAMÍREZ and had the opportunity to ask questions and assume patient care.
[2022-11-17] MEDS: K and/or MAG REPLACEMENT MC SCH (20:00)
[2022-11-17] MEDS: lactobacillus rhamnosus 10,000 MMU CELLS/CAPSULE PO SCH (20:47)
[2022-11-17] MEDS: docusate sod 100mg capsule PO SCH (20:47)
[2022-11-17] MEDS: apixaban 5mg tablet PO SCH (20:47)
[2022-11-17 22:00] VITALS: BP 143/86
[2022-11-18] MEDS: vancomycin/NS 1 GM ADD-VANTAGE 250 ML IV SCH ×2 (00:02→08:25)
[2022-11-18] MEDS: HYDROcodone/acetaminophen 10/325mg tab PO PRN ×2 (00:08→22:04)
[2022-11-18] MEDS: piperacillin/tazo 3.375gm/50ml 50 ML IV SCH ×3 (00:12→17:51)
[2022-11-18] MEDS: potassium Cl 20 mEq SR tablet PO PRN (02:51)
[2022-11-18] MEDS: normal saline 1000ml 1,000 ML IV SCH (05:39)
[2022-11-18 06:00] VITALS: BP 120/83
--- NOTE | 2022-11-18 06:25 | NUR ---
Problems reprioritized. Patient report given, questions answered & plan of care reviewed with GERRY RAMÍREZ.
--- NOTE | 2022-11-18 06:29 | NUR ---
Patient in room ORTHO 4011. I have received report from Sharifa Skaggs and had the opportunity to ask questions and assume patient care.
[2022-11-18] MEDS: K and/or MAG REPLACEMENT MC SCH ×2 (07:14→20:00)
[2022-11-18] MEDS: docusate sod 100mg capsule PO SCH ×2 (07:21→22:02)
[2022-11-18] MEDS: furosemide 40mg tablet PO SCH (07:21)
[2022-11-18] MEDS: lactobacillus rhamnosus 10,000 MMU CELLS/CAPSULE PO SCH ×2 (07:21→22:02)
[2022-11-18] MEDS: apixaban 5mg tablet PO SCH ×2 (07:21→22:02)
[2022-11-18] MEDS: chlorthalidone 25mg tablet PO SCH (07:21)
[2022-11-18] MEDS: lisinopril 5mg tablet PO SCH (07:22)
[2022-11-18] MEDS: methadone 10mg tablet PO SCH (07:22)
[2022-11-18] MEDS ORDERED: VANCOMYCIN LEVEL IV ONE (07:30)
[2022-11-18 08:54] LABS: ALANINE AMINOTRANSFERASE 104 U/L (12-78); ALBUMIN 2.9 G/DL (3.4-5.0); ALBUMIN/GLOBULIN RATIO 0.6 (1.1-1.5); ALKALINE PHOSPHATASE 135 IU/L (46-116); ANION GAP 7 (8-16); ASPARTATE AMINO TRANSFERASE 60 U/L (10-37); BILIRUBIN,TOTAL 0.8 MG/DL (0.1-1.0); BLOOD UREA NITROGEN 13 MG/DL (7-18); BUN/CREATININE RATIO 14.8 (10.0-20.0); CALCIUM 8.8 MG/DL (8.5-10.1); CHLORIDE 99 MMOL/L (99-107); CREATININE 0.88 MG/DL (0.60-1.10); GLUCOSE 167 MG/DL (70-104); POTASSIUM 3.6 MMOL/L (3.5-5.1); SODIUM 135 MMOL/L (135-145); TOTAL CARBON DIOXIDE 28.8 MMOL/L (24-32); TOTAL PROTEIN 7.4 G/DL (6.4-8.2); eGFR > 90 ML/MIN
[2022-11-18 08:56] LABS: CHOL/HDL RATIO 2.8 (0.00-4.99); CHOLESTEROL 116 MG/DL (0-200); HDL CHOLESTEROL 42 MG/DL (35-60); LDL CHOLESTEROL 71 MG/DL (50-100); PHOSPHORUS 3.3 MG/DL (2.3-4.5); TRIGLYCERIDES 66 MG/DL (20-135); VANCOMYCIN,TROUGH 11.3 UG/ML (6.0-14.0)
[2022-11-18 09:45] LABS: BASOPHILS # (AUTO) 0.1 X10'3 (0-0.2); BASOPHILS % (AUTO) 0.9 % (0-1); EOSINOPHILS # (AUTO) 0.2 X10'3 (0-0.9); HEMATOCRIT 36.2 % (42.0-52.0); HEMOGLOBIN 12.3 g/dl (14.0-17.9); LYMPHOCYTES # (AUTO) 1.2 X10'3 (1.1-4.8); LYMPHOCYTES % (AUTO) 18.7 % (21-51); MEAN CORPUSCULAR HEMOGLOBIN 28.9 PG (27.0-31.0); MEAN CORPUSCULAR HGB CONC 33.8 g/dL (33.0-36.5); MEAN CORPUSCULAR VOLUME 85.4 FL (78-98); MEAN PLATELET VOLUME 6.7 FL (7.4-10.4); MONOCYTES # (AUTO) 0.5 X10'3 (0-0.9); NEUTROPHILS # (AUTO) 4.4 X10'3 (1.8-7.7); NEUTROPHILS % (AUTO) 69.4 % (42-75); PLATELET COUNT 276 X10'3 (140-440); RED BLOOD COUNT 4.24 X10'6 (4.70-6.10); RED CELL DISTRIBUTION WIDTH 15.4 % (11.5-14.5); WHITE BLOOD COUNT 6.3 X10'3 (4.5-11.0)
[2022-11-18 10:00] VITALS: BP 134/93
--- NOTE | 2022-11-18 10:26 | NUR ---
Initial: Noted pt with an A1c of 7.7% with no PMH DM, notified RN and althea FARMER to inform of A1c and that RD is unable to provide DM education until physician has notified pt of DM dx. Pt admit for LLE cellulitis, sepsis, and hypokalemia. Tox screen positive for methadone, fentanyl, and amphetamines. Currently on a heart healthy diet and eating well, documented with 75-100% PO intake however not meeting estimated nutrient needs given large stature and increased protein needs r/t sepsis. D/w dietary to send double protein with meals for satiety and to assist with meeting estimated nutrient needs. Recommend continuing without CHO controlled diet restriction at this time so pt can meet estimated nutrient needs and BG 167-176 mg/dL since admit without receiving DM medications for blood sugar management. Per EMR LBM 11/16, receiving routine Colace and Culturelle. Will continue to follow. Recommendations: 1) Consider liberalizing to regular diet; lipid panel WNL and unable to meet estimated nutrient needs without ONS if on a CHO controlled diet; BG 167-176 mg/dL since admit without receiving DM meds 2) Double eggs WB, double meat BIDLD for satiety and to meet estimated nutrient needs 3) Routine bowel care 4) Scaled weight this admit; subsequent weekly scaled weights 5) DM education as appropriate pending DM dx by physician; RN and physician notified 11/18 Addendum: 11/18/22 at [address] Amended: Links added.
[2022-11-18] MEDS ORDERED: ondansetron 4mg rapidly disintigrating tab PO PRN (14:40)
--- NOTE | 2022-11-18 15:54 | NUR ---
Message: Omid Crews in - MRSA nares swab came back positive. -Delmy [phone]
[2022-11-18] MEDS: VANCOmycin 1250MG/NS 250ml Bag 250 ML IV SCH (15:55)
[2022-11-18 17:00] VITALS: BP 140/83
[2022-11-18] MEDS ORDERED: glucagon, human recombinant 1mg kit SUBCUT PRN (18:00)
[2022-11-18] MEDS ORDERED: DEXTROSE 15 GM of carb/4 tabs (each vial/BOTTLE has 4 tablets) PO PRN ×2 (18:00)
[2022-11-18] MEDS ORDERED: MESSAGE TO PHARMACY PO ONE (18:00)
[2022-11-18] MEDS ORDERED: dextrose 50%-water 50ml dispensing syringe IV PRN ×2 (18:00)
[2022-11-18] MEDS ORDERED: insulin Lispro (HumaLOG) vial - multi-dose SQ SCH (18:00)
[2022-11-18 18:32] LABS: HIV ANTIBODY 1&2 RAPID NON-REACTIVE (Neg)
--- NOTE | 2022-11-18 19:10 | NUR ---
Patient in room ORTHO 4011. I have received report from DARRELL Brock and had the opportunity to ask questions and assume patient care.
[2022-11-18] MEDS ORDERED: insulin glargine (Lantus) pen - multi-dose SQ SCH (21:00)
[2022-11-18 22:00] VITALS: BP 126/75
[2022-11-19] MEDS: VANCOmycin 1250MG/NS 250ml Bag 250 ML IV SCH ×2 (00:22→08:18)
[2022-11-19] MEDS: piperacillin/tazo 3.375gm/50ml 50 ML IV SCH ×2 (02:10→08:00)
[2022-11-19 06:00] VITALS: BP 104/65
--- NOTE | 2022-11-19 06:30 | NUR ---
Problems reprioritized. Patient report given, questions answered & plan of care reviewed with Dianne Barnard RN.
[2022-11-19 06:33] LABS: BASOPHILS # (AUTO) 0.1 X10'3 (0-0.2); BASOPHILS % (AUTO) 1.2 % (0-1); EOSINOPHILS # (AUTO) 0.3 X10'3 (0-0.9); EOSINOPHILS % (AUTO) 4.4 % (0-6); HEMATOCRIT 37.7 % (42.0-52.0); HEMOGLOBIN 12.5 g/dl (14.0-17.9); LYMPHOCYTES # (AUTO) 1.6 X10'3 (1.1-4.8); LYMPHOCYTES % (AUTO) 25.2 % (21-51); MEAN CORPUSCULAR HEMOGLOBIN 28.5 PG (27.0-31.0); MEAN CORPUSCULAR HGB CONC 33.1 g/dL (33.0-36.5); MEAN PLATELET VOLUME 6.5 FL (7.4-10.4); MONOCYTES # (AUTO) 0.8 X10'3 (0-0.9); MONOCYTES % (AUTO) 12.3 % (2-12); NEUTROPHILS # (AUTO) 3.6 X10'3 (1.8-7.7); NEUTROPHILS % (AUTO) 56.9 % (42-75); PLATELET COUNT 291 X10'3 (140-440); RED BLOOD COUNT 4.39 X10'6 (4.70-6.10); RED CELL DISTRIBUTION WIDTH 15.5 % (11.5-14.5); WHITE BLOOD COUNT 6.4 X10'3 (4.5-11.0)
--- NOTE | 2022-11-19 06:35 | NUR ---
Patient in room ORTHO 4011. I have received report from Leatha and had the opportunity to ask questions and assume patient care.
[2022-11-19 06:50] LABS: ALANINE AMINOTRANSFERASE 112 U/L (12-78); ALBUMIN 2.9 G/DL (3.4-5.0); ALBUMIN/GLOBULIN RATIO 0.6 (1.1-1.5); ALKALINE PHOSPHATASE 136 IU/L (46-116); ANION GAP 7 (8-16); ASPARTATE AMINO TRANSFERASE 66 U/L (10-37); BILIRUBIN,TOTAL 0.7 MG/DL (0.1-1.0); BLOOD UREA NITROGEN 12 MG/DL (7-18); BUN/CREATININE RATIO 13.3 (10.0-20.0); CALCIUM 9.1 MG/DL (8.5-10.1); CHLORIDE 101 MMOL/L (99-107); GLUCOSE 112 MG/DL (70-104); MAGNESIUM 2.5 MG/DL (1.5-2.4); POTASSIUM 3.3 MMOL/L (3.5-5.1); SODIUM 139 MMOL/L (135-145); TOTAL CARBON DIOXIDE 31.1 MMOL/L (24-32); TOTAL PROTEIN 7.6 G/DL (6.4-8.2); eGFR > 90 ML/MIN
[2022-11-19] MEDS: K and/or MAG REPLACEMENT MC SCH (08:00)
[2022-11-19] MEDS: chlorthalidone 25mg tablet PO SCH (08:21)
[2022-11-19] MEDS: docusate sod 100mg capsule PO SCH (08:22)
[2022-11-19] MEDS: lactobacillus rhamnosus 10,000 MMU CELLS/CAPSULE PO SCH (08:22)
[2022-11-19] MEDS: lisinopril 5mg tablet PO SCH (08:22)
[2022-11-19] MEDS: apixaban 5mg tablet PO SCH (08:22)
[2022-11-19] MEDS: potassium Cl 20 mEq SR tablet PO PRN (08:22)
[2022-11-19] MEDS: furosemide 40mg tablet PO SCH (08:22)
[2022-11-19] MEDS: methadone 10mg tablet PO SCH (08:29)
[2022-11-19 10:00] VITALS: BP 148/74
[2022-11-19] MEDS ORDERED: LINE600T12 PO (13:49)
[2022-11-19] MEDS ORDERED: METF-1203 PO (13:49)
--- NOTE | 2022-11-19 14:15 | NUR ---
Reviewed discharge instructions with patient. Reviewed diabetic core measures and provided education material, and diabetic survival skills. Patient declined to have wound photos taken as he had been extremely anxious about discharging this early am. Patient gathered his belongings and phoned his ride to pick him up. Patient was accompanied to the elevator and left the hospital to be taken home by his family/friend.
[2022-11-19] MEDS ORDERED: VANCOMYCIN LEVEL IV ONE (15:30)
== END 2022-11-19 14:15 | disposition home or self-care (01) | DRG 720 ==
LOC: ER 06:44 → ED HOLD 09:59 → ORTHO 4S 10:30
PROVIDERS: ADMIT Family Medicine; ATTEND Family Medicine
DX: A41.9 Sepsis, unspecified organism (principal); K76.0 Fatty (change of) liver, not elsewhere classified; R16.0 Hepatomegaly, not elsewhere classified; I50.9 Heart failure, unspecified; I11.0 Hypertensive heart disease with heart failure; L03.116 Cellulitis of left lower limb; E11.9 Type 2 diabetes mellitus without complications; E66.01 Morbid (severe) obesity due to excess calories; E87.6 Hypokalemia; I87.2 Venous insufficiency (chronic) (peripheral); F11.20 Opioid dependence, uncomplicated; F15.20 Other stimulant dependence, uncomplicated; G89.4 Chronic pain syndrome; I89.0 Lymphedema, not elsewhere classified; Z79.01 Long term (current) use of anticoagulants; Z79.84 Long term (current) use of oral hypoglycemic drugs; Z79.899 Other long term (current) drug therapy; Z86.14 Personal history of Methicillin resistant Staphylococcus aureus infection; Z86.718 Personal history of other venous thrombosis and embolism; Z91.199 Patient's noncompliance with other medical treatment and regimen due to unspecified reason; Z56.0 Unemployment, unspecified; Z68.43 Body mass index [BMI] 50.0-59.9, adult; Z71.51 Drug abuse counseling and surveillance of drug abuser; Z71.3 Dietary counseling and surveillance
CPT/HCPCS: 36415; 76700; 80053; 80061; 80202; 80305; 81001; 82948; 83036; 83605; 83735; 84100; 84145; 84443; 85025; 86703; 86705; 86706; 86709; 86803; 87040; 87081; 87340; 87522; 93306; 96365; 96367; 99285; A6258; A6446; G0378; J0696; J1815; J2543; J3370; J7030; J7040; Q0163

== ENCOUNTER 2023-06-26 21:27 | Emergency (ER) | payer MEDICAID ==
[~2023-06-26] VITALS: Ht 188 cm; Wt 199.6 kg
[2023-06-26 23:03] LABS: BASOPHILS % (AUTO) 0.8 % (0-1); EOSINOPHILS # (AUTO) 0.1 X10'3 (0-0.9); EOSINOPHILS % (AUTO) 1.7 % (0-6); HEMATOCRIT 37.8 % (42.0-52.0); HEMOGLOBIN 12.6 g/dl (14.0-17.9); LYMPHOCYTES # (AUTO) 1.2 X10'3 (1.1-4.8); LYMPHOCYTES % (AUTO) 20.4 % (21-51); MEAN CORPUSCULAR HEMOGLOBIN 28.6 PG (27.0-31.0); MEAN CORPUSCULAR HGB CONC 33.4 g/dL (33.0-36.5); MEAN CORPUSCULAR VOLUME 85.7 FL (78-98); MEAN PLATELET VOLUME 6.2 FL (7.4-10.4); MONOCYTES # (AUTO) 0.8 X10'3 (0-0.9); MONOCYTES % (AUTO) 14.5 % (2-12); NEUTROPHILS # (AUTO) 3.5 X10'3 (1.8-7.7); NEUTROPHILS % (AUTO) 62.6 % (42-75); PLATELET COUNT 234 X10'3 (140-440); RED BLOOD COUNT 4.41 X10'6 (4.70-6.10); RED CELL DISTRIBUTION WIDTH 15.3 % (11.5-14.5); WHITE BLOOD COUNT 5.6 X10'3 (4.5-11.0)
[2023-06-26 23:05] LABS: INR 0.9 INR; PROTHROMBIN TIME 10.2 SECONDS (9.0-12.0)
[2023-06-26] MEDS ORDERED: bacitracin 15gm ointment TP ONE (23:15)
[2023-06-27 00:02] VITALS: PULSE 80
[2023-06-27 00:03] VITALS: BP 162/87; RESP 18; TEMP 98; O2SAT 100
== END 2023-06-27 00:04 | disposition home or self-care (01) ==
LOC: ER 21:28
DX: S81.811A Laceration without foreign body, right lower leg, initial encounter (principal); Z79.01 Long term (current) use of anticoagulants; I10 Essential (primary) hypertension; M19.90 Unspecified osteoarthritis, unspecified site; F15.90 Other stimulant use, unspecified, uncomplicated; F11.90 Opioid use, unspecified, uncomplicated; Z56.0 Unemployment, unspecified; Z86.718 Personal history of other venous thrombosis and embolism; Z79.899 Other long term (current) drug therapy; W50.4XXA Accidental scratch by another person, initial encounter; Y93.89 Activity, other specified; Y92.89 Other specified places as the place of occurrence of the external cause; Y99.8 Other external cause status
CPT/HCPCS: 12002; 36415; 85025; 85610; 99284

== ENCOUNTER 2023-09-03 09:17 | Emergency (ER) | payer MEDICAID ==
[~2023-09-03] VITALS: Ht 188 cm; Wt 193.4 kg
[2023-09-03 11:02] VITALS: BP 139/85; PULSE 77; TEMP 98.2; O2SAT 99
[2023-09-03 11:44] VITALS: RESP 20
[2023-09-03] MEDS ORDERED: clindamycin phosphate 150mg/ml inj. IM ONE (13:15)
[2023-09-03] MEDS ORDERED: CEPH-585 PO (13:17)
[2023-09-03] MEDS ORDERED: SULF1TAB49 PO (13:17)
[2023-09-03 13:50] LABS: BASOPHILS # (AUTO) 0.1 X10'3 (0-0.2); BASOPHILS % (AUTO) 0.8 % (0-1); EOSINOPHILS # (AUTO) 0.3 X10'3 (0-0.9); EOSINOPHILS % (AUTO) 3.9 % (0-6); HEMATOCRIT 38.5 % (42.0-52.0); HEMOGLOBIN 12.6 g/dl (14.0-17.9); LYMPHOCYTES # (AUTO) 1.4 X10'3 (1.1-4.8); LYMPHOCYTES % (AUTO) 16.9 % (21-51); MEAN CORPUSCULAR HEMOGLOBIN 27.8 PG (27.0-31.0); MEAN CORPUSCULAR HGB CONC 32.6 g/dL (33.0-36.5); MEAN CORPUSCULAR VOLUME 85.2 FL (78-98); MEAN PLATELET VOLUME 6.6 FL (7.4-10.4); MONOCYTES # (AUTO) 0.8 X10'3 (0-0.9); MONOCYTES % (AUTO) 9.6 % (2-12); NEUTROPHILS # (AUTO) 5.8 X10'3 (1.8-7.7); NEUTROPHILS % (AUTO) 68.8 % (42-75); PLATELET COUNT 299 X10'3 (140-440); RED BLOOD COUNT 4.53 X10'6 (4.70-6.10); RED CELL DISTRIBUTION WIDTH 14.8 % (11.5-14.5); WHITE BLOOD COUNT 8.4 X10'3 (4.5-11.0)
[2023-09-03 14:01] LABS: ALBUMIN 3.2 G/DL (3.4-5.0); ANION GAP 7 (8-16); BLOOD UREA NITROGEN 18 MG/DL (7-18); BUN/CREATININE RATIO 20.5 (10.0-20.0); CALCIUM 8.6 MG/DL (8.5-10.1); CHLORIDE 99 MMOL/L (99-107); CREATININE 0.88 MG/DL (0.60-1.10); GLUCOSE 133 MG/DL (70-104); PRO BRAIN NATRIURETIC PEPTIDE 39 PG/ML (0-125); SODIUM 137 MMOL/L (135-145); TOTAL CARBON DIOXIDE 30.8 MMOL/L (24-32); eCRCL 122 ML/MIN; eGFR > 90 ML/MIN
[2023-09-03] MEDS: potassium Cl 20 mEq SR tablet PO STA (15:46)
[2023-09-03] MEDS: clindamycin 600mg/D5W 50ml 50 ML IV ONE (15:47)
== END 2023-09-03 16:19 | disposition home or self-care (01) ==
LOC: ER 09:17
DX: I82.402 Acute embolism and thrombosis of unspecified deep veins of left lower extremity (principal); L03.116 Cellulitis of left lower limb; E87.6 Hypokalemia; I10 Essential (primary) hypertension; M19.90 Unspecified osteoarthritis, unspecified site; F15.90 Other stimulant use, unspecified, uncomplicated; Z79.899 Other long term (current) drug therapy; Z79.2 Long term (current) use of antibiotics
CPT/HCPCS: 36415; 71045; 80048; 83880; 85025; 93970; 96365; 99285; J3490

== ENCOUNTER 2023-10-25 15:18 | Emergency (ER) | payer MEDICAID ==
[~2023-10-25] VITALS: Ht 188 cm; Wt 200.0 kg
[2023-10-25 15:19] VITALS: TEMP 98.7
[2023-10-25 16:55] LABS: BASOPHILS % (AUTO) 0.2 % (0-1); EOSINOPHILS # (AUTO) 0.1 X10'3 (0-0.9); EOSINOPHILS % (AUTO) 1.4 % (0-6); HEMATOCRIT 39.2 % (42.0-52.0); HEMOGLOBIN 12.9 g/dl (14.0-17.9); LYMPHOCYTES # (AUTO) 1.1 X10'3 (1.1-4.8); LYMPHOCYTES % (AUTO) 11.7 % (21-51); MEAN CORPUSCULAR HEMOGLOBIN 27.3 PG (27.0-31.0); MEAN CORPUSCULAR VOLUME 82.9 FL (78-98); MEAN PLATELET VOLUME 6.6 FL (7.4-10.4); MONOCYTES # (AUTO) 0.6 X10'3 (0-0.9); MONOCYTES % (AUTO) 6.5 % (2-12); NEUTROPHILS # (AUTO) 7.8 X10'3 (1.8-7.7); NEUTROPHILS % (AUTO) 80.2 % (42-75); PLATELET COUNT 273 X10'3 (140-440); RED BLOOD COUNT 4.72 X10'6 (4.70-6.10); RED CELL DISTRIBUTION WIDTH 15.6 % (11.5-14.5); WHITE BLOOD COUNT 9.7 X10'3 (4.5-11.0)
[2023-10-25 17:15] LABS: ALBUMIN/GLOBULIN RATIO 0.6 (1.1-1.5); ALKALINE PHOSPHATASE 184 IU/L (46-116); ANION GAP 6 (8-16); ASPARTATE AMINO TRANSFERASE 33 U/L (10-37); BILIRUBIN,TOTAL 1.1 MG/DL (0.1-1.0); BLOOD UREA NITROGEN 14 MG/DL (7-18); BUN/CREATININE RATIO 15.4 (10.0-20.0); CALCIUM 8.8 MG/DL (8.5-10.1); CHLORIDE 97 MMOL/L (99-107); CREATININE 0.91 MG/DL (0.60-1.10); GLUCOSE 114 MG/DL (70-104); POTASSIUM 3.6 MMOL/L (3.5-5.1); SODIUM 133 MMOL/L (135-145); TOTAL CARBON DIOXIDE 30.2 MMOL/L (24-32); TOTAL PROTEIN 7.8 G/DL (6.4-8.2); eCRCL 118 ML/MIN; eGFR 90 ML/MIN
[2023-10-25 17:39] LABS: ALANINE AMINOTRANSFERASE 56 U/L (12-78)
[2023-10-25] MEDS ORDERED: cephalexin 250mg capsule PO ONE (18:15)
[2023-10-25] MEDS ORDERED: SULF1TAB49 PO (18:15)
[2023-10-25] MEDS ORDERED: CEPH500C2 PO (18:15)
[2023-10-25 18:20] LABS: BILIRUBIN,URINE NEGATIVE (Neg); CLARITY,URINE CLEAR (Clear); COLOR,URINE STRAW (Yellow); GLUCOSE, URINE NEGATIVE (Neg); KETONES,URINE NEGATIVE (Neg); LEUKOCYTE ESTERASE ,URINE NEGATIVE (Neg); NITRITES, URINE NEGATIVE (Neg); OCCULT BLOOD,URINE NEGATIVE (Neg); PH,URINE 6.5 (4.8-8.0); PROTEIN,URINE NEGATIVE (Neg); UROBILINOGEN,URINE 0.2 E.U/dL (0.2-1.0)
[2023-10-25 18:23] LABS: UA COLLECTION TYPE NON-SPECIFIED
[2023-10-25] MEDS: sulfamethoxazole/trimethoprim DS (800/160mg) tablet PO ONE (18:23)
[2023-10-25] MEDS: cephalexin 500mg capsule PO ONE (18:23)
[2023-10-25] MEDS ORDERED: FLUC150T22 PO (18:26)
[2023-10-25 18:28] VITALS: BP 141/78; PULSE 79; RESP 16; O2SAT 97
== END 2023-10-25 18:30 | disposition home or self-care (01) ==
LOC: ER 15:19
DX: L03.116 Cellulitis of left lower limb (principal); I10 Essential (primary) hypertension; F15.90 Other stimulant use, unspecified, uncomplicated; F11.90 Opioid use, unspecified, uncomplicated; Z72.89 Other problems related to lifestyle; Z56.0 Unemployment, unspecified; Z86.718 Personal history of other venous thrombosis and embolism; Z79.899 Other long term (current) drug therapy; Z79.2 Long term (current) use of antibiotics
CPT/HCPCS: 36415; 80053; 81003; 85025; 99284

== ENCOUNTER 2025-01-29 20:38 | Emergency (ER) | payer MEDICAID ==
[~2025-01-29] VITALS: Ht 175.3 cm; Wt 139.0 kg
[2025-01-29 20:44] VITALS: BP 187/100; PULSE 80; RESP 15; O2SAT 96
--- NOTE | 2025-01-29 20:56 | Physician Documentation ---
History of Present Illness ~ Chief Complaint: Leg Pain Stated Complaint: CELLULITIS Time Seen by MD: 21:22 Primary Medical Doctor: julieta shepard in [facility] 72-year-old male presenting to the ER with complaints of leg pain. Patient reports that he has a clot in the posterior leg that he is currently taking Eliquis for. Here for evaluation of increased pain. Tetanus witin 5 years: No Medication Reconciliation Allergies: Coded Allergies: No Known Allergies (Unverified , 01/29/25) Scheduled Apixaban (Eliquis), 1 TAB PO Q12H, (Reported) Chlorthalidone (Chlorthalidone), 1 TAB PO DAILY, (Reported) Furosemide (Furosemide), 1 TAB PO DAILY, (Reported) Lisinopril (Lisinopril), 1 TAB PO DAILY, (Reported) Methadone HCl (Methadose), 149 MG PO DAILY, (Reported) Potassium Chloride (Potassium Chloride), 1 TAB PO DAILY, (Reported) Potassium Chloride (Klor-Con M15), 1 TAB PO DAILY, (Reported) Miscellaneous Medications Semaglutide (Wegovy), (Reported) Discontinued Medications Furosemide (Furosemide), 40 MG PO DAILY Discontinued Reason: Other Lisinopril (Lisinopril), 5 MG PO DAILY Discontinued Reason: patient no longer taking Potassium Chloride (Klor-Con M20), 1 TAB PO DAILY Discontinued Reason: patient no longer taking Past Medical History Past Medical History: Hypertension, Arthritis, Deep Vein Thrombosis, Cellulitis Past Surgical History: no surgical history Patient History: Patient reports no known family medical history. Alcohol Use: Heavy Drug Use: methamphetamine, heroin Lives In: Home Occupation: unemployed Review of Systems All Other Systems at this time: Reviewed and Negative ROS As stated above in the HPI, otherwise all systems are reviewed and negative. Physical Exam Vital Signs: Temperature: 96.8, Heart Rate: 80, Respiratory Rate: 15, BP: 187/100, Pulse Oximetry: 96, Weight: 139.000 Physical Exam VITALS: Reviewed and as above. GENERAL: Alert, no apparent distress. HEENT: Normocephalic, atraumatic, PERRL, EOMI, dry mucosa, no erythema RESPIRATORY: Lungs clear, normal breath sounds, no respiratory distress. CHEST: No accessory muscle use, no retractions CV: Regular rate, rhythm, no edema, no murmur, No: JVD GI: Soft, non-tender, bowels sounds present, no rebound, guarding, or rigidity BACK: No CVA tenderness, or swelling MUSCULOSKELETAL No deformities, no edema SKIN: Warm and dry, marked area of erythema that is hot to the touch to the lateral posterior aspect of the left leg NEURO: Oriented x4, No motor or sensory deficit PSYCH: Normal mood and affect, no agitation Progress Results/Orders Results/Orders Orders - JOSH DICK [facility] [employer] [facility] Culture Blood (01/29/25 21:38) Completed Orders - JOSH DICK [employer] [employer] [facility] Cbc/Diff (01/29/25 21:38) CMP (01/29/25 21:38) Lacticsepsis (01/29/25 21:38) Cefazolin Inj. (Ancef Inj.) (01/29/25 21:50) Cefazolin Im Kit (Er Only) (Ancef Im Kit (01/29/25 22:10) Medications Received in ER Medications (Trade) Dose Ordered Sig/Richy Route PRN Reason Start Time Stop Time Status Last Admin Dose Admin (Ancef IM kit (ER only)) 1 gm ONCE ONCE IM 01/29/25 22:10 01/29/25 22:11 DC 01/29/25 22:16 1 GM Vital Signs 01/29/25 20:44 Temp 96.8 Pulse 80 Resp 15 B/P (MAP) 187/100 Pulse Ox 96 Laboratory Tests Test 01/29/25 22:03 White Blood Count 8.2 Red Blood Count 4.59 L Hemoglobin 13.1 L Hematocrit 39.4 L Mean Corpuscular Volume 85.8 Mean Corpuscular Hemoglobin 28.5 Mean Corpuscular Hemoglobin Concent 33.2 Red Cell Distribution Width 14.0 Platelet Count 236 Mean Platelet Volume 6.4 L Neutrophils (%) (Auto) 73.7 Lymphocytes (%) (Auto) 15.3 L Monocytes (%) (Auto) 8.2 Eosinophils (%) (Auto) 1.9 Basophils (%) (Auto) 0.9 Neutrophils # (Auto) 6.0 Lymphocytes # (Auto) 1.3 Monocytes # (Auto) 0.7 Eosinophils # (Auto) 0.2 Basophils # (Auto) 0.1 CBC Comment Sodium Level 134 L Potassium Level 3.4 L Chloride Level 100 Carbon Dioxide Level 27.7 Anion Gap 6 L Blood Urea Nitrogen 11 Creatinine 0.82 Estimated GFR/1.73 m2 > 90 BUN/Creatinine Ratio 13.4 Glucose Level 148 H Lactic Acid Level 0.8 Calcium Level 8.7 Total Bilirubin 0.8 Aspartate Amino Transf (AST/SGOT) 51 H Alanine Aminotransferase (ALT/SGPT) 88 H Alkaline Phosphatase 209 H Total Protein 7.7 Albumin 3.0 L Globulin 4.7 H Albumin/Globulin Ratio 0.6 L Chemistry Comments Medical Decision Making Findings This patient presents with initial presentation of local erythema, warmth, swelling concerning for cellulitis. Sensitivity/pain to light touch around the erythematous area. No lymphangitic spread visible and no fluid pockets or fluctuance concerning for abscess noted. Low concern for DVT as patient is on Eliquis. No immune compromise, bullae, pain out of proportion, or rapid progression concerning for necrotizing fasciitis. Patient to be discharged home with keflex with follow up with their PMD. Departure Disposition: HOME / SELF CARE / HOMELESS Impression: Primary Impression: Cellulitis Additional Impression: Cellulitis of left lower extremity Condition: Stable Discharge Instructions: Cellulitis, Adult Additional Instructions: Today we saw you for a area of erythema concerning for cellulitis to the left lower extremity we have prescribed you an antibiotic that we would like for you to take in its entirety. On ibuprofen every 6 hours as needed for discomfort. If your symptoms worsen or you have new additional concerning symptoms please return to the ER. Follow up with the primary care provider. Referrals: NO PRIMARY CARE PROVIDER (PCP) Prescriptions Cephalexin*Monohydrate* (Keflex*) 500 Mg Capsule 1 CAP PO QID for Cellulitis for 10 Days, #40 CAP Prov: JOSH DICK 01/29/25 Education Educated: Patient Educated regarding: diagnosis, treatment, need for follow up Signature Scribe Signature: . Attestation: Scribed for Josh Dick by JOSE Jimenes . 01/29/25 23:18 JOSH DICK Jan 29, 2025 20:56
[2025-01-29] MEDS ORDERED: POTA15TA18 PO (21:07)
[2025-01-29] MEDS ORDERED: SEMA0.253 (21:07)
[2025-01-29] MEDS ORDERED: LISI10TA27 PO (21:07)
[2025-01-29] MEDS ORDERED: POTA-366 PO (21:07)
[2025-01-29] MEDS ORDERED: FURO40TA4 PO (21:09)
[2025-01-29 22:16] LABS: MEAN PLATELET VOLUME 6.4 FL (7.4-10.4); RED CELL DISTRIBUTION WIDTH 14.0 % (11.5-14.5)
[2025-01-29] MEDS: ceFAZolin 1gm IM kit IM ONE (22:16)
[2025-01-29 22:34] LABS: CREATININE 0.82 MG/DL (0.60-1.10); TOTAL CARBON DIOXIDE 27.7 MMOL/L (24-32); eCRCL 111 ML/MIN; eGFR > 90 ML/MIN
[2025-01-29] MEDS ORDERED: CEPH-585 PO (23:17)
[2025-01-29 23:29] VITALS: TEMP 96.8
== END 2025-01-29 23:28 | disposition home or self-care (01) ==
LOC: ER 20:38
DX: L03.116 Cellulitis of left lower limb (principal); M19.90 Unspecified osteoarthritis, unspecified site; I10 Essential (primary) hypertension; F15.90 Other stimulant use, unspecified, uncomplicated; F11.90 Opioid use, unspecified, uncomplicated; Z86.718 Personal history of other venous thrombosis and embolism; Z79.01 Long term (current) use of anticoagulants; Z79.899 Other long term (current) drug therapy; Z56.0 Unemployment, unspecified
CPT/HCPCS: 36415; 80053; 83605; 85025; 87040; 96372; 99283; J0690